=== PATIENT | female | born 1990 | race Caucasian/White ===

== ENCOUNTER 2024-05-31 18:09 | Emergency (ER) | payer OTHER, SELFPAY ==
[2024-05-31 18:16] VITALS: BP 117/75; PULSE 70; RESP 16; TEMP 36.6; O2SAT 100; BMI 32.0
--- NOTE | 2024-05-31 18:16 | ED_ITS ---
HPI - General Adult General Chief complaint: General Medical Stated complaint: Urgent [facility] sent to have Blood tranfusion Time Seen by Provider: 05/31/24 19:30 Source: patient and other (Significant other) Mode of arrival: ambulatory Limitations: no limitations History of Present Illness ED Provider: Dr. Jason Berry HPI narrative: 33-year-old female with a history of anemia who presents emergency department for evaluation abdominal pain, a positive H pylori blood test and anemia. Patient states she was seen in urgent care and was found to have anemia with an H&H of 8.3 and 29. She also states that she had a positive H pylori test. She states she was told to go to the emergency department to get a blood transfusion indicate treated for H pylori. She states that she was exposed to someone that has H pylori. The patient states that she was having abdominal pain and she points to her epigastric area when asked to localize her pain. She describes the pain is a heartburn like pain which is worse with eating. She has not noticed any dark tarry stools or bloody stools. The patient states that she does have very heavy menstrual periods and has to use pads and tampons. She states that she was may have had iron deficiency anemia in the past but never took iron supplements. Related Data Previous Rx's ?Medication ?Instructions ?Recorded amoxicillin 500 mg capsule 1,000 mg (2 x 500 mg) PO Q12H 14 05/31/24 days #56 caps clarithromycin 500 mg tablet 500 mg PO Q12H 14 days #28 tabs 05/31/24 ferrous sulfate 325 mg (65 mg 325 mg PO BID 90 days #180 tabs 05/31/24 iron) tablet omeprazole 20 mg capsule,delayed 40 mg (2 x 20 mg) PO DAILY H 05/31/24 release pylori treatment 14 days #28 caps ondansetron HCl 4 mg tablet 4 mg PO Q8H PRN nausea and 05/31/24 vomiting #20 tabs Allergies Allergy/AdvReac Type Severity Reaction Status Date / Time No Known Allergies Allergy Verified 05/31/24 18:19 Review of Systems 2 Review of Systems: Yes all other systems are reviewed and are negative [facility] Past Medical History [facility] Narrative: Social history: She denies tobacco use. She denies alcohol use. She smokes marijuana. Social History Social History Advance Directives: No Advance Directives Information Provided: No Physical Exam ED Vital Signs: Vital Signs - 24 hr 05/31/24 18:16 05/31/24 20:32 Temperature 98 F 98 F Pulse Rate 70 70 Respiratory Rate 16 16 Blood Pressure 117/75 117/75 Pulse Oximetry 100 100 Oxygen Delivery Method Room Air Room Air BMI result Body Mass Index 32.0 Vital signs were normal Exam: General: Awake, alert in no distress Head: Normocephalic, atraumatic EENT: PERRL, Lids normal, sclera normal, conjunctiva normal, nose normal , ears normal, throat without erythema or exudates Neck: Supple, no adenopathy Lung: breath sounds symmetric, no wheezing, rales or rhonchi Chest: symmetric movement, nontender Heart: regular rate and rhythm, normal S1, S2 no murmurs or rubs Abdomen: soft, moderate epigastric tenderness, nondistended, normal bowel sounds Neuro: Awake, alert, oriented, normal speech Course Course Course Narrative: This is a Rapid Medical Examination (RME) performed by Jordan Woodard PA-C in triage. Full HPI, ROS, assessment and treatment plan per primary provider in the Main ED. 33 yo female with recently diagnosed H. Pylori at Urgent Care presents to the ER for blood transfusion after she was also found to be anemic on lab work up there. Results came back today. Reported H/H 8.3. She reports new ALICEA and chronic fatigue. She reports very heavy menstrual cycles. LMP 3 weeks ago. Plan: lab workup, T&S Medical Decision Making Medical Decision Making MDM Narrative: 33-year-old female with a history of anemia who presents emergency department for evaluation epigastric, heartburn like pain, positive H pylori blood test and anemia. The patient's pain was located in the epigastric area and she describes it as heartburn. Physical exam did reveal epigastric tenderness otherwise was unremarkable. Patient was not noted any dark tarry stools or blood per rectum but does have very heavy menstrual periods. Differential diagnosis: ?Includes but is not limited to H pylori infection, peptic ulcer disease, gastritis, stomach ulcer, GERD, iron deficient anemia secondary to GI bleed verses heavy menstrual periods, electrolyte abnormalities Following evaluation was ordered: CBC, BMP, liver panel, magnesium, iron profile, urinalysis, type and screen Course: My interpretation patient's laboratory evaluation is as follows: Microcytic anemia with an H&H of 8.3 and 27.5 with an MCV of 66.9. BNP was normal. LFTs were normal. Iron was low at 14 with a low saturation of 4 and a normal iron binding of 344. Urinalysis was negative. Patient's presentation is consistent with an iron deficient anemia which I suspect is more related to her menses then a GI bleed. Patient does have heartburn like symptoms and may have peptic ulcer disease. She did have a positive antibody test for H pylori. Given her symptoms, I will treat her for possible H pylori peptic ulcer disease with triple therapy: Clarithromycin 500 mg q.12 hours times 14 days, amoxicillin 1000 mg q.12 hours times 14 days and Prilosec (omeprazole) 40 mg once a day for 14 days. Patient was also given a prescription for ferrous sulfate 325 mg tablets, 1 pill q.12 hours for 90 days. I did tell the patient that if her symptoms do not get better after completing the triple therapy for H pylori and she will need to see a freight car repairer for further workup of her abdominal pain in her iron deficiency anemia. Admission/Observation Consideration of admission/observation: Escalation of care including admission/observation considered Lab Data MDM Lab Attestation statement: I reviewed the patient's lab results. 05/31/24 18:27 05/31/24 18:27 Labs: Lab Results 05/31/24 05/31/24 Range/Units 18:27 18:36 WBC 6.1 (4.8-10.8) X10*3/uL RBC 4.11 L (4.20-5.50) X10*6/uL Hgb 8.3 L (12.0-16.0) g/dl Hct 27.5 L (37.0-47.0) % MCV 66.9 L (80.0-98.0) fL MCH 20.2 L (27.0-33.0) pg MCHC 30.2 L (31.0-35.0) g/dl RDW 15.6 (11.0-16.0) % Plt Count 271 (160-400) X10*3/uL MPV 9.9 (9.4-12.3) fL Immature Gran % (Auto) 0.2 (0.0-0.4) % Neut % (Auto) 63.7 (45-73) % Lymph % (Auto) 25.7 (20-40) % [place] % (Auto) 8.2 (2-11) % Eos % (Auto) 1.5 (0-4) % Baso % (Auto) 0.7 (0-2) % Lymph # (Auto) 1.6 (1.2-4.9) X10*3/uL [place] # (Auto) 0.5 (0.1-1.2) X10*3/uL Eos # (Auto) 0.1 (0.0-0.4) X10*3/uL Baso # (Auto) 0.0 (0.0-0.2) X10*3/uL Abs Immat Gran (auto) 0.01 (0.00-0.03) X10*3/uL Absolute Neuts (auto) 3.9 (2.0-8.3) x10*3/uL Absolute Nucleated RBC 0.000 (0.0-0.012) X10*3/uL Nucleated RBC % (auto) 0.0 (0.0-0.2) /100WBC Sodium 140 (135-145) mmol/L Potassium 3.6 (3.3-5.1) mmol/L Chloride 108 (96-108) mmol/L Carbon Dioxide 24 (22-29) mmol/L Anion Gap 12 (12-20) BUN 16 (9-16) mg/dL Creatinine 0.73 (0.5-1.4) mg/dL Estim Creat Clear Calc 99.6 Estimated GFR > 60 Random Glucose 93 (60-115) mg/dL Calcium 8.8 (8.4-10.2) mg/dL Magnesium 2.1 (1.6-2.6) mg/dL Iron 14 L (30-160) mcg/dL TIBC 358 (228-428) mcg/dL % Saturation 4 L (15-50) % Unsat Iron Binding 344 ug/dL Total Bilirubin 0.1 (0.0-1.0) mg/dL Direct Bilirubin < 0.2 (0.0-0.5) mg/dL AST 25 (5-31) U/L ALT 11 (0-31) U/L Alkaline Phosphatase 48 (39-117) U/L Total Protein 6.9 (6.5-8.0) g/dL Albumin 3.8 (3.5-5.0) g/dL Urine Color Yellow Urine Appearance Clear Urine pH 6.0 (5.0-9.0) Ur Specific [place] 1.015 (1.005-1.025) Urine Protein Negative (Neg-Trace) mg/dL Urine Glucose (UA) Negative (Negative) mg/dL Urine Ketones Negative (Negative) mg/dL Urine Blood Negative (Negative) Urine Nitrite Negative (Negative) Ur Leukocyte Esterase Negative (Negative) Blood Type O Positive Antibody Screen NEGATIVE Independent Historian Clinical information obtained from an independent historian. History obtained from or confirmed by: Other (Significant other) When I initially went into the room to talk to the patient, both the patient and the patient's significant other quickly became upset and angry when I was asking questions about the patient's presentation. They were insistent that they were here in the emergency department get treated for H pylori and to get blood transfusions for her anemia. I tried to explain that a positive H pylori test may not be related to her symptoms and that it was important to take a history , performed physical, review her laboratory data in order to make a diagnosis and determine clinically if her symptoms and exam would be consistent with H pylori peptic ulcer disease and required treatment. The significant other became very upset and kept interrupting me. At one point the patient's significant other became very upset and told me that she knew that we would not listen to her and her girlfriend and the significant other left the room. After the significant other left the room , I was able to talk to the and I was able to talk to the patient and I was able to get a history, performed an exam and have a discussion about treatment options with the patient. Prescription Management I considered prescription management with: Antibiotic and Other (H2 christian) Discharge Plan Discharge Clinical Impression: PUD (peptic ulcer disease), Helicobacter pylori ab+, Microcytic anemia Patient Disposition: Home, Self-Care Instructions: Peptic Ulcer (ED), Iron Deficiency Anemia (ED) Additional Instructions: Your iron deficient anemia is more likely to be caused by your menstrual periods. Every time you have a menstrual period in lose blood, you lose iron and this is a very common cause for anemia in women. Your hematocrit today was 27.5%. The normal range in women is 37-47%. We do not transfuse people unless there hematocrit is below 21%. Take ferrous sulfate 325 mg pills, 1 pill twice a day for 3 months. This should increase your hematocrit. You need to follow-up with your primary care provider to get a repeat hemoglobin and hematocrit in 1-2 months to make sure that this medication is working to help reverse your anemia. Your stomach/heartburn symptoms may be consistent with an H pylori infection causing peptic ulcer disease. I am going to treat you for H pylori, however if your heartburn symptoms better after completing the 3 drug therapy, then you will need to follow-up with a freight car repairer for an endoscopy to look for other causes of your heartburn symptoms. Take the following 3 medications as prescribed: Prilosec (omeprazole) 20 mg pills, 2 pills once a day for 14 days Clarithromycin 500 mg pills, 1 pill every 12 hours for 14 days. Amoxicillin 500 mg pills, 2 pills every 12 hours for 14 days Your hematocrit today was 27.5%. The normal range in women is 37-47%. We do not transfuse people unless there hematocrit is below 21%. The ferrous sulfate and Prilosec are also yyfm-yye-[id number] medications and your insurance may not cover these medications. Prescriptions: New amoxicillin 500 mg capsule 1,000 mg PO Q12H 14 Days Qty: 56 0RF omeprazole 20 mg capsule,delayed release(DR/EC) 40 mg PO DAILY 14 Days Qty: 28 0RF clarithromycin 500 mg tablet 500 mg PO Q12H 14 Days Qty: 28 0RF ondansetron HCl 4 mg tablet 4 mg PO Q8H PRN (Reason: nausea and vomiting) Qty: 20 0RF ferrous sulfate 325 mg (65 mg iron) tablet 325 mg PO BID 90 Days Qty: 180 0RF Interventions: ED Discharge Assessment Last Done: 05/31/24 20:32 Discharge Date/Time: 05/31/24 20:33 Print Language: Cymro
[2024-05-31 18:43] LABS: MANUAL DIFF FLAG NO
[2024-05-31 18:54] LABS: Basophils Percent Auto 0.7 % (0-2); Eosinophils Absolute Auto 0.1 X10*3/uL (0.0-0.4); Eosinophils Percent Auto 1.5 % (0-4); Hematocrit 27.5 % (37.0-47.0); Hemoglobin 8.3 g/dl (12.0-16.0); Imm Gran Abs Auto 0.01 X10*3/uL (0.00-0.03); Imm Gran Pct Auto 0.2 % (0.0-0.4); Lymphocytes Absolute Auto 1.6 X10*3/uL (1.2-4.9); Lymphocytes Percent Auto 25.7 % (20-40); Mean Corpuscular HGB Conc 30.2 g/dl (31.0-35.0); Mean Corpuscular Hemoglobin 20.2 pg (27.0-33.0); Mean Corpuscular Volume 66.9 fL (80.0-98.0); Mean Platelet Volume 9.9 fL (9.4-12.3); Monocytes Absolute Auto 0.5 X10*3/uL (0.1-1.2); Monocytes Percent Auto 8.2 % (2-11); Neutrophils Absolute Auto 3.9 x10*3/uL (2.0-8.3); Neutrophils Percent Auto 63.7 % (45-73); Platelet Count 271 X10*3/uL (160-400); Red Blood Count 4.11 X10*6/uL (4.20-5.50); Red Cell Distribution Width 15.6 % (11.0-16.0); White Blood Count 6.1 X10*3/uL (4.8-10.8)
[2024-05-31 18:54] LABS: Appearance Urine Clear; Color Urine Yellow; Glucose Urine UA Negative (Negative); Leukocyte Esterase Urine Negative (Negative); Nitrite Urine Negative (Negative); Specific Gravity - Urine 1.015 (1.005-1.025); Urine Blood Negative (Negative); Urine Ketones Negative (Negative); Urine Protein Negative (Neg-Trace)
[2024-05-31 19:05] LABS: Alanine Aminotransferase 11 U/L (0-31); Albumin Level 3.8 g/dL (3.5-5.0); Alkaline Phosphatase 48 U/L (39-117); Anion Gap 12 (12-20); Aspartate Amino Transferase 25 U/L (5-31); Bilirubin Direct < 0.2 mg/dL (0.0-0.5); Bilirubin Total 0.1 mg/dL (0.0-1.0); Blood Urea Nitrogen 16 mg/dL (9-16); Calcium 8.8 mg/dL (8.4-10.2); Carbon Dioxide 24 mmol/L (22-29); Chloride 108 mmol/L (96-108); Creatinine Clr Calc Pharmacy 99.6; Estimated Glomerular Filt Rate > 60; Glucose Random 93 mg/dL (60-115); Iron 14 mcg/dL (30-160); Magnesium 2.1 mg/dL (1.6-2.6); Percent Iron Saturation 4 % (15-50); Potassium 3.6 mmol/L (3.3-5.1); Sodium 140 mmol/L (135-145); Total Iron Binding Capacity 358 mcg/dL (228-428); Total Protein 6.9 g/dL (6.5-8.0); Unsaturated Iron Binding 344 ug/dL
[2024-05-31 20:32] VITALS: BP 117/75; PULSE 70; RESP 16; TEMP 36.6; O2SAT 100
== END 2024-05-31 20:33 | disposition home or self-care (01) ==
PROVIDERS: Physician Assistant; Emergency Provider Emergency Medicine Emergency Medical Services
DX: K27.9 Peptic ulcer, site unspecified, unspecified as acute or chronic, without hemorrhage or perforation (principal); A04.8 Other specified bacterial intestinal infections; D64.9 Anemia, unspecified; Z79.899 Other long term (current) drug therapy
CPT/HCPCS: 36415; 80048; 80076; 81003; 83540; 83735; 85025; 86850; 86900; 86901; 99283

== ENCOUNTER 2024-10-22 07:53 | Emergency (ER) | payer OTHER, SELFPAY ==
--- NOTE | ~2024-10-22 | XR_ITS ---
EXAMINATION: XR CHEST CLINICAL INFORMATION: cough COMPARISON: None available. TECHNIQUE: 2 views of the chest were obtained. FINDINGS: No significant abnormality is noted involving the heart, lungs, mediastinum, bony thorax or soft tissues. XR/XR chest 2V IMPRESSION: Unremarkable chest examination. Electronically signed by: Tim Mcgarry MD 10/22/2024 08:30 AM [facility]
[2024-10-22 07:55] VITALS: BP 109/60; PULSE 91; RESP 20; TEMP 38.3; O2SAT 100; BMI 28.3
[2024-10-22] MEDS: Ondansetron ODT 4 MG TAB.RAPDIS TRANSLINGU (08:01)
[2024-10-22] MEDS: Acetaminophen 325 MG TABLET 650 MG PO (08:03)
[2024-10-22 09:09] LABS: Influenza A PCR POSITIVE (Negative); Influenza B PCR NEGATIVE (Negative); Resp Syncy Virus RNA Qual PCR NEGATIVE (Negative); SARS COV2 PCR INHOUSE NEGATIVE (Negative)
--- NOTE | 2024-10-22 09:13 | ED.GENADULT ---
HPI - General Adult General Chief complaint: Upper Respiratory Symptoms Stated complaint: Flu symptoms Time Seen by Provider: 10/22/24 09:02 Source: patient Mode of arrival: ambulatory Limitations: no limitations History of Present Illness ED Provider: Naomi Hackett PA-C HPI narrative: Patient is a 34 year old assigned female at with no reported medical history presenting to the emergency department today with a cough, body aches, nausea, and vomiting. Patient states that over the last 2 days she has had nausea, vomiting, cough, body aches, and chills. Patient denies any dizziness, lightheadedness, abdominal pain, blurry vision, double vision, loss of vision, chest pain, difficulty breathing, shortness of breath, back pain, night sweats, pain with urination, increased urinary frequency, increased urinary urgency, blood in her urine or stool, syncope or a near syncopal episode, recent trauma or falls, bowel incontinence, bladder incontinence, or any other complaints at this time. Onset (ago): day(s) (2) Relieving factors: none Exacerbating factors: none Associated symptoms: cough, fever/chills and nausea/vomiting Treatments prior to arrival: other (Nyquil at 0400) Related Data Previous Rx's ?Medication ?Instructions ?Recorded amoxicillin 500 mg capsule 1,000 mg (2 x 500 mg) PO Q12H 14 05/31/24 days #56 caps clarithromycin 500 mg tablet 500 mg PO Q12H 14 days #28 tabs 05/31/24 ferrous sulfate 325 mg (65 mg 325 mg PO BID 90 days #180 tabs 05/31/24 iron) tablet omeprazole 20 mg capsule,delayed 40 mg (2 x 20 mg) PO DAILY H 05/31/24 release pylori treatment 14 days #28 caps ondansetron HCl 4 mg tablet 4 mg PO Q8H PRN nausea and 05/31/24 vomiting #20 tabs Allergies Allergy/AdvReac Type Severity Reaction Status Date / Time No Known Allergies Allergy Verified 10/22/24 07:56 Review of Systems Constitutional: Constitutional: Reports no additional constitutional complaints, Reports chills, Reports fever(s) and Denies night sweats Eyes: Eyes: Reports no additional eye complaints, Denies blurry vision, Denies change in vision, Denies diplopia, Denies eye discharge, Denies loss of vision and Denies eye pain ENT: Denies dizziness Cardiovascular: Cardiovascular: Reports no additional cardiovascular complaints, Denies chest pain, Denies lightheadedness, Denies Loss of Consciousness and Denies dyspnea Respiratory: Respiratory: Reports no additional respiratory complaints, Reports cough and Denies dyspnea Gastrointestinal: Gastrointestinal: Reports no additional gastrointestinal complaints, Denies abdominal pain, Denies melena, Denies hematochezia, Denies change in bowel habits, Denies change in stool character, Reports nausea and Reports vomiting Genitourinary: Genitourinary: Denies hematuria, Denies urinary frequency, Denies dysuria, Denies urinary incontinence, Denies urinary hesitancy and Denies urinary urgency Musculoskeletal: Musculoskeletal: Reports no additional musculoskeletal complaints, Denies numbness and Denies tingling Neurologic: Denies dizziness, Denies loss of vision, Denies numbness and Denies tingling Psychiatric: Psychiatric: Reports no additional psychiatric complaints Endocrine: Endocrine: Reports no additional endocrine complaints Hematologic/Lymphatic: Hematologic/Lymphatic: Reports no additional hematologic/lymphatic complaints Allergic/Immunologic: Allergic/Immunologic: Reports no additional allergic/immunologic complaints PMFSH Past Medical History Attestation statement: The following information was validated with the patient. Source: old records reviewed and nursing notes reviewed Physical Exam ED Vital Signs: Vital Signs - 24 hr 10/22/24 07:55 10/22/24 10:49 Temperature 101 F H 99.7 F Pulse Rate 91 84 Respiratory Rate 20 18 Blood Pressure 109/60 110/58 L Pulse Oximetry 100 99 Oxygen Delivery Method Room Air Room Air BMI result Body Mass Index 28.3 Const General: cooperative, no acute distress, alert and awake Nutritional Appearance: well nourished Orientation/consciousness: patient oriented x3 Limitations: no limitations HENAK Head: Yes normal to inspection and Yes atraumatic Ears: hearing grossly normal bilaterally and external ears normal General nose exam: Normal external nose present, no nasal discharge noted and no epistaxis Face and sinus: Yes normal facial exam, No abrasion and No laceration Mouth: Normal oral and palatal mucosa present, no drooling and no muffled voice Eyes General: appearance normal, both eyes and all related structures Periorbital: periorbital findings normal Eyelids: Yes eyelids normal Conjunctivae: conjunctivae normal Pupils: Equal, round and reactive pupils present EOM: EOMs intact bilaterally Neck Neck: Yes normal visual inspection, Yes full ROM and Yes no lymphadenopathy Chest Chest palpation & inspection: normal inspection of the chest Resp Effort & Inspection: normal respiratory effort and able to speak in complete sentences GI Inspection: Yes normal to inspection Neuro General: patient oriented x3 and moves all extremities Cranial nerves: Yes Equal, round and reactive pupils present Cognition (Neuro): normal cognition Extrem General: Yes normal to inspection, Yes full ROM and Yes capillary refill normal Psych Appearance: grossly normal Mental Status: mental status grossly normal Affect: normal affect Attitude: cooperative Thought process: Normal thought process present Thought content: Normal thought content present Insight: Good insight present (Psych) Medications Administered Discontinued Medications Generic Name Dose Route Start Last Admin Trade Name José Manuelq PRN Reason Stop Dose Admin Acetaminophen 650 mg 10/22/24 07:57 10/22/24 08:03 Acetaminophen 325 Mg Tablet PO 10/22/24 07:58 650 mg ONCE ONE Administration Sodium Chloride 1,000 mls @ 999 mls/hr 10/22/24 09:15 10/22/24 10:39 Ns IV 10/22/24 10:15 Infused .Q1H1M GRECIA Infusion Ketorolac Tromethamine 15 mg 10/22/24 10:25 10/22/24 10:39 Ketorolac Tromethamine 15 Mg/Ml Vial IVPUSH 10/22/24 10:26 15 mg ONCE ONE Administration Ondansetron HCl 4 mg 10/22/24 07:59 10/22/24 08:01 Ondansetron Odt 4 Mg Tab.Rapdis TRANSLINGU 10/22/24 08:00 4 mg ONCE ONE Administration Medical Decision Making Medical Decision Making [facility] Narrative: Patient is a 34 year old assigned female at with no reported medical history presenting to the emergency department today with a cough, fever, chills, nausea, and vomiting. Patient's physical exam was unremarkable. Patient's chest x-ray showed no acute process. Patient's influenza test was positive. I explained my physical exam findings as well as all test results to the patient. I answered all questions asked by the patient. I stressed the importance of the patient taking her medication as directed (either prescribed or as the over the counter packaging recommends). I stressed the importance of the patient following up with her primary care provider. I stressed the importance of the patient returning to the emergency department immediately if her symptoms were to worsen or if she were to develop any dizziness, shortness of breath, difficulty breathing, chest pain, blurry vision, loss of vision, nausea, vomiting, abdominal pain, fever, chills, back pain, or any other complaints. Patient verbalized agreement and understanding with this treatment plan and discharge. Differential Diagnosis Differential Diagnoses: The differential diagnosis associated with the presentation includes COVID-19 Influenza RSV PNA Viral illness Admission/Observation Consideration of admission/observation: Escalation of care including admission/observation considered Patient would have been admitted to the hospital had her work up had any findings where hospital admission was appropriate and her clinical presentation warranted hospital admission. Lab Data [facility] Lab Attestation statement: I reviewed the patient's lab results. My interpretation of these results are in the [facility] Rationale portion of this note. Labs: Lab Results 10/22/24 Range/Units 08:03 Influenza Type A (PCR) POSITIVE A (Negative) Influenza Type B (PCR) NEGATIVE (Negative) RSV RNA Qual (PCR) NEGATIVE (Negative) SARS-CoV-2 RNA (RT-PCR) NEGATIVE (Negative) Independent Interpretation I performed an independent interpretation of an: Plain X-Ray Interpretation: My interpretation is in agreement with the radiologist's impression of this imaging study. EXAMINATION: XR CHEST CLINICAL INFORMATION: cough COMPARISON: None available. TECHNIQUE: 2 views of the chest were obtained. FINDINGS: No significant abnormality is noted involving the heart, lungs, mediastinum, bony thorax or soft tissues. XR/XR chest 2V IMPRESSION: Unremarkable chest examination. Electronically signed by: Tim Mcgarry MD 10/22/2024 08:30 AM [facility] [place]ict[place] By: Tim Mcgarry MD Signed By: Electronically signed by Tim Mcgarry MD 10/22/24 0830 Radiology Impression Discussion of test interpretation with radiology: I have reviewed the radiologist's reading. Discharge Plan Discharge Clinical Impression: Influenza Patient Disposition: Home, Self-Care Instructions: Influenza (DC) Additional Instructions: Follow up with your primary care provider. Return to the emergency department immediately if your symptoms worsen or if you develop any dizziness, shortness of breath, difficulty breathing, chest pain, blurry vision, loss of vision, nausea, vomiting, abdominal pain, fever, chills, back pain, or any other complaints. Prescriptions: No Action amoxicillin 500 mg capsule 1,000 mg PO Q12H 14 Days Qty: 56 0RF omeprazole 20 mg capsule,delayed release(DR/EC) 40 mg PO DAILY 14 Days Qty: 28 0RF clarithromycin 500 mg tablet 500 mg PO Q12H 14 Days Qty: 28 0RF ondansetron HCl 4 mg tablet 4 mg PO Q8H PRN (Reason: nausea and vomiting) Qty: 20 0RF ferrous sulfate 325 mg (65 mg iron) tablet 325 mg PO BID 90 Days Qty: 180 0RF Referrals: [facility] [Provider Group] (Call to establish and follow up with a primary care provider. If you already have a primary care provider, please follow up with them.) [facility] [place] [Provider Group] (Call to establish and follow up with a primary care provider. If you already have a primary care provider, please follow up with them.) [facility],[place] [Provider Group] (Call to establish and follow up with a primary care provider. If you already have a primary care provider, please follow up with them.) Stand Alone Forms: Work/School Release Interventions: ED Discharge Assessment Last Done: 10/22/24 10:49 Discharge Date/Time: 10/22/24 10:50 Print Language: Azeri
[2024-10-22] MEDS: 0.9 % Sodium Chloride 1,000 ML 999 ML IV (09:34)
[2024-10-22] MEDS: Ketorolac Tromethamine 15 MG/ML VIAL IVPUSH (10:39)
[2024-10-22 10:49] VITALS: BP 110/58; PULSE 84; RESP 18; TEMP 37.6; O2SAT 99
== END 2024-10-22 10:50 | disposition home or self-care (01) ==
PROVIDERS: Emergency Provider Emergency Medicine Emergency Medical Services
DX: J10.1 Influenza due to other identified influenza virus with other respiratory manifestations (principal); R50.9 Fever, unspecified; R05.9 Cough, unspecified; Z03.818 Encounter for observation for suspected exposure to other biological agents ruled out
CPT/HCPCS: 0241U; 71046; 96361; 96374; 99283; 99284; J1885

== ENCOUNTER → 2024-10-22 08:20 | Outpatient (BNV) | payer OTHER, SELFPAY | PROVIDERS: Visit Provider Radiology Diagnostic Radiology | DX: R05.9 Cough, unspecified (principal) | CPT/HCPCS: 71046 ==

== ENCOUNTER → 2025-01-03 21:32 | Outpatient (BNV) | payer OTHER, SELFPAY | PROVIDERS: Emergency Provider Emergency Medicine; Visit Provider Surgery | DX: D64.9 Anemia, unspecified (principal); K35.80 Unspecified acute appendicitis; N92.0 Excessive and frequent menstruation with regular cycle | CPT/HCPCS: 44970; 99024; 99222 ==

== ENCOUNTER → 2025-01-03 22:40 | Outpatient (BNV) | payer OTHER, SELFPAY | PROVIDERS: Emergency Provider Emergency Medicine; Visit Provider Radiology Vascular & Interventional Radiology | DX: R10.31 Right lower quadrant pain (principal) | CPT/HCPCS: 74177 ==

== ENCOUNTER → 2025-01-04 05:54 | Outpatient (BNV) | payer OTHER, SELFPAY | PROVIDERS: Admitting Provider Surgery; Visit Provider Internal Medicine Cardiovascular Disease | DX: R00.1 Bradycardia, unspecified (principal); R94.31 Abnormal electrocardiogram [ECG] [EKG] | CPT/HCPCS: 93010 ==

== ENCOUNTER 2025-01-04 15:37 | Inpatient (IN) | payer OTHER, SELFPAY ==
--- NOTE | 2025-01-03 19:27 | ED_ITS ---
HPI - Abdominal Pain General Chief Complaint: Abdominal Pain Stated Complaint: lower right abd pain Time Seen by Provider: 01/03/25 22:20 Source: patient and family (Significant other) Mode of arrival: ambulatory Limitations: no limitations History of Present Illness ED Provider: DR. Mccurdy HPI narrative: 34-year-old female with history of iron deficiency anemia presented today with right-sided abdominal pain for the last 3 days accompanied with nausea, 3 days of loose stool, passing gas, patient declined any blood in the stool, having her menses now, + dizziness, no CP, no SOB, Past surgical history significant for C-sections, passing flatus. Related Data Previous Rx's ?Medication ?Instructions ?Recorded amoxicillin 500 mg capsule 1,000 mg (2 x 500 mg) PO Q12H 14 05/31/24 days #56 caps clarithromycin 500 mg tablet 500 mg PO Q12H 14 days #28 tabs 05/31/24 ferrous sulfate 325 mg (65 mg 325 mg PO BID 90 days #180 tabs 05/31/24 iron) tablet omeprazole 20 mg capsule,delayed 40 mg (2 x 20 mg) PO DAILY H 05/31/24 release pylori treatment 14 days #28 caps ondansetron HCl 4 mg tablet 4 mg PO Q8H PRN nausea and 05/31/24 vomiting #20 tabs Allergies Allergy/AdvReac Type Severity Reaction Status Date / Time No Known Allergies Allergy Verified 01/03/25 19:29 Review of Systems Review of Systems All other systems are reviewed and are negative Constitutional: Reports as per HPI and Reports no additional constitutional complaints Eyes: Reports as per HPI and Reports no additional eye complaints Reports system reviewed and no additional complaints, except as documented Cardiovascular: Reports as per HPI and Reports no additional cardiovascular complaints Respiratory: Reports as per HPI and Reports no additional respiratory complaints Gastrointestinal: Reports as per HPI and Reports no additional gastrointestinal complaints Genitourinary: Reports no additional female genitourinary complaints Musculoskeletal: Reports no additional musculoskeletal complaints Skin/Breast: Reports system reviewed and no additional complaints, except as docu Psychiatric: Reports no additional psychiatric complaints Endocrine: Reports no additional endocrine complaints Hematologic/Lymphatic: Reports no additional hematologic/lymphatic complaints Allergic/Immunologic: Reports no additional allergic/immunologic complaints Reports system reviewed and no additional complaints, except as documented and Reports Abnormal speech present [facility] Social History Social History Smoked in Last 30 Days: No Substance Use Type: Marijuana Substance Use Frequency: Daily Advance Directives: No Advance Directives Information Provided: No Do you have a plan to hurt others: No Plan Patient : No Physical Exam ED Vital Signs: Vital Signs - 24 hr 01/03/25 19:28 01/03/25 21:47 01/03/25 22:00 Temperature 98.6 F 97.9 F Pulse Rate 78 54 67 Respiratory Rate 18 18 18 Blood Pressure 107/67 106/58 L 103/64 Pulse Oximetry 100 100 97 Oxygen Delivery Method Room Air Room Air Room Air 01/04/25 01:07 01/04/25 01:41 01/04/25 01:59 Temperature 97.9 F 97.9 F 98.2 F Pulse Rate 63 63 52 Respiratory Rate 16 16 17 Blood Pressure 109/32 L 109/32 L 100/57 L Pulse Oximetry 100 Oxygen Delivery Method Room Air 01/04/25 03:31 01/04/25 04:16 01/04/25 06:27 Temperature 98.1 F Pulse Rate 51 63 46 L Respiratory Rate 13 16 12 Blood Pressure 93/52 L 100/64 98/63 Pulse Oximetry 99 Oxygen Delivery Method Room Air 01/04/25 07:07 Temperature Pulse Rate 50 Respiratory Rate 16 Blood Pressure 106/63 Pulse Oximetry 98 Oxygen Delivery Method Room Air BMI result Body Mass Index 28.5 Vital signs have been reviewed and appear to be correct. Blood pressure elevated. Heart rate normal. Respiratory rate normal. Temperature normal. Oxygen saturation normal. Appearance: Alert. Oriented X3. No acute distress. Head: Normal external exam. Normocephalic. Atraumatic. No Elizabeth signs noted. No raccoon eyes noted Eyes: PERRLA. EOMI. Conjunctiva and sclera normal. Eyelids normal. ENT: TM's Normal. Pharynx normal. Uvula midline. Moist mucous membranes. No trismus noted. No drooling noted. No muffled voice noted. Neck: Normal inspection. Neck supple. FROM. No adenopathy. Thyroid Normal. No meningeal signs. No neck mass noted. CVS: Normal heart rate and rhythm. Heart sound normal. No murmurs noted. Pulses normal throughout. Respiratory: No respiratory distress. Painless inspiration. Breath sounds normal. No wheezes/rales/rhonchi noted. Chest nontender. No accessory muscle usage noted or decreased air movement noted. Abdomen: Soft, RLQ tenderness, no rebound tenderness, no guarding. Bowel sounds normal in all 4 quadrants. No distention noted. No organomegaly noted. No visible injury noted. Back: No CVA tenderness. Full range of motion noted. Skin: Skin warm and dry. Normal skin color. Normal skin turgor. No rashes/lesions/lacerations noted. Extremities: No lower extremity edema. Extremities exhibit normal range of motion. Extremities nontender. Neuro: Oriented X 3. Cranial nerve exam: II-XII are grossly intact No motor deficit. No sensory deficit. Reflexes normal. Course Course Course Narrative: This is an RME: Additional HPI, ROS, PE not included below will be deferred to primary provider. RME assessment and note performed by: Alem Luke PA-C This is a [id number], with a hx of iron deficiency anemia and h pylori, who presents to the ER with a complaint of right sided abdominal pain, right flank pain. Hurts more with coughing. Reporting 3 days ago she had loose stool and is concerned about a hemorrhoid she has now as well. No longer having loose stools. Also has her menses now. Pt with TTP overlying her right flank. Reports urinary frequency and urgency. No dysuria or hematuria. Plan:Labs, UA Reevaluation(s) Reevaluation #1: 34-year-old female came in with abdominal pain CT scan suspecting early appendicitis case discussed with Dr. Lozoya who will see the patient in the emergency department in the a.m.. Patient also found to be anemic consented for 1 unit RBCs blood transfusion. Despite patient knowing the seriousness of appendicitis threatened several times to sign against medical advice, I had several lengthy conversation with the patient was given Benadryl to to help her sleep, now she agreed to stay till morning for further surgical evaluation. Time: 02:10 Reevaluation #2: Seen and evaluated by Dr. Lozoya in the emergency department will be going to the OR for appendectomy. Time: 06:58 Medical Decision Making Differential Diagnosis Differential Diagnoses: The differential diagnosis associated with the presentation includes (Severe anemia, GI bleed, acute appendicitis, pyelonephritis, kidney stones, UTI, ) Admission/Observation Consideration of admission/observation: Escalation of care including admission/observation considered Consult Healthcare Provider Management of the patient was discussed with: Material Requirements Worker (Dr. Lozoya.) Lab Data MDM Lab Attestation statement: I reviewed the patient's lab results. 01/03/25 20:25 01/03/25 20:25 Labs: Lab Results 01/03/25 01/03/25 Range/Units 20:25 23:22 WBC 6.1 (4.8-10.8) X10*3/uL RBC 3.97 L (4.20-5.50) X10*6/uL Hgb 6.8 L* (12.0-16.0) g/dl Hct 24.2 L (37.0-47.0) % MCV 61.0 L (80.0-98.0) fL MCH 17.1 L (27.0-33.0) pg MCHC 28.1 L (31.0-35.0) g/dl RDW 19.3 H (11.0-16.0) % Plt Count 322 (160-400) X10*3/uL MPV 9.6 (9.4-12.3) fL Immature Gran % (Auto) 0.2 (0.0-0.4) % Neut % (Auto) 56.6 (45-73) % Lymph % (Auto) 33.3 (20-40) % Drew % (Auto) 7.6 (2-11) % Eos % (Auto) 1.6 (0-4) % Baso % (Auto) 0.7 (0-2) % Lymph # (Auto) 2.0 (1.2-4.9) X10*3/uL Drew # (Auto) 0.5 (0.1-1.2) X10*3/uL Eos # (Auto) 0.1 (0.0-0.4) X10*3/uL Baso # (Auto) 0.0 (0.0-0.2) X10*3/uL Abs Immat Gran (auto) 0.01 (0.00-0.03) X10*3/uL Absolute Neuts (auto) 3.4 (2.0-8.3) x10*3/uL Absolute Nucleated RBC 0.000 (0.0-0.012) X10*3/uL Nucleated RBC % (auto) 0.0 (0.0-0.2) /100WBC Sodium 140 (135-145) mmol/L Potassium 3.9 (3.3-5.1) mmol/L Chloride 109 H (96-108) mmol/L Carbon Dioxide 26 (22-29) mmol/L Anion Gap 9 L (12-20) BUN 22 H (9-16) mg/dL Creatinine 0.74 (0.5-1.4) mg/dL Estim Creat Clear Calc 91.8 Estimated GFR > 60 Random Glucose 84 (60-115) mg/dL Calcium 8.8 (8.4-10.2) mg/dL Magnesium 1.9 (1.6-2.6) mg/dL Total Bilirubin 0.3 (0.0-1.0) mg/dL Direct Bilirubin 0.1 (0.0-0.5) mg/dL AST 27 (5-31) U/L ALT 10 (0-31) U/L Alkaline Phosphatase 49 (39-117) U/L Total Protein 7.5 (6.5-8.0) g/dL Albumin 4.0 (3.5-5.0) g/dL Beta HCG, Quant < 2 mIU/mL Urine Color Yellow Urine Appearance Clear Urine pH 5.5 (5.0-9.0) Ur Specific [place] >= 1.030 H (1.005-1.025) Urine Protein Trace (Neg-Trace) mg/dL Urine Glucose (UA) Negative (Negative) mg/dL Urine Ketones Trace (Negative) mg/dL Urine Blood Negative (Negative) Urine Nitrite Negative (Negative) Ur Leukocyte Esterase Negative (Negative) Blood Type O Positive Antibody Screen NEGATIVE Crossmatch See Detail Independent Interpretation I performed an independent interpretation of an: CT Scan (Abdomen pelvis:The appendix is borderline prominent at 7 mm and does exhibit minimal periappendiceal stranding. This is in a retrocecal position. The base and proximal appendix are thin walled and gas-filled. Findings are somewhat nonspecific. Close clinical follow-up could be considered. Otherw) Radiology Impression Discussion of test interpretation with radiology: I have reviewed the radiologist's reading. Medications Administered Discontinued Medications Generic Name Dose Route Start Last Admin Trade Name Freq PRN Reason Stop Dose Admin Diphenhydramine HCl 50 mg 01/04/25 01:08 01/04/25 01:14 Diphenhydramine Hcl 50 Mg/Ml Vial IVPUSH 01/04/25 01:09 50 mg ONCE ONE Administration Iohexol 85 ml 01/03/25 23:05 01/03/25 23:06 Iohexol 350 Mg/Ml 100 Ml Infus..Btl IV 01/03/25 23:06 85 ml ONCE ONE Administration Discharge Plan Discharge Clinical Impression: Abdominal pain, Acute appendicitis, Severe anemia Patient Disposition: Still a Patient Prescriptions: No Action amoxicillin 500 mg capsule 1,000 mg PO Q12H 14 Days Qty: 56 0RF omeprazole 20 mg capsule,delayed release(DR/EC) 40 mg PO DAILY 14 Days Qty: 28 0RF clarithromycin 500 mg tablet 500 mg PO Q12H 14 Days Qty: 28 0RF ondansetron HCl 4 mg tablet 4 mg PO Q8H PRN (Reason: nausea and vomiting) Qty: 20 0RF ferrous sulfate 325 mg (65 mg iron) tablet 325 mg PO BID 90 Days Qty: 180 0RF Print Language: Pashto
[2025-01-03 19:28] VITALS: BP 107/67; PULSE 78; RESP 18; TEMP 37; O2SAT 100; BMI 28.5
[2025-01-03 20:31] LABS: MANUAL DIFF FLAG NO
[2025-01-03 20:39] LABS: Basophils Percent Auto 0.7 % (0-2); Eosinophils Absolute Auto 0.1 X10*3/uL (0.0-0.4); Eosinophils Percent Auto 1.6 % (0-4); Hematocrit 24.2 % (37.0-47.0); Imm Gran Abs Auto 0.01 X10*3/uL (0.00-0.03); Imm Gran Pct Auto 0.2 % (0.0-0.4); Lymphocytes Percent Auto 33.3 % (20-40); Mean Corpuscular HGB Conc 28.1 g/dl (31.0-35.0); Mean Corpuscular Hemoglobin 17.1 pg (27.0-33.0); Mean Platelet Volume 9.6 fL (9.4-12.3); Monocytes Absolute Auto 0.5 X10*3/uL (0.1-1.2); Monocytes Percent Auto 7.6 % (2-11); Neutrophils Absolute Auto 3.4 x10*3/uL (2.0-8.3); Neutrophils Percent Auto 56.6 % (45-73); Platelet Count 322 X10*3/uL (160-400); Red Blood Count 3.97 X10*6/uL (4.20-5.50); Red Cell Distribution Width 19.3 % (11.0-16.0); White Blood Count 6.1 X10*3/uL (4.8-10.8)
[2025-01-03 20:44] LABS: Hemoglobin 6.8 g/dl (12.0-16.0)
[2025-01-03 20:57] LABS: Alanine Aminotransferase 10 U/L (0-31); Alkaline Phosphatase 49 U/L (39-117); Anion Gap 9 (12-20); Aspartate Amino Transferase 27 U/L (5-31); Bilirubin Direct 0.1 mg/dL (0.0-0.5); Bilirubin Total 0.3 mg/dL (0.0-1.0); Blood Urea Nitrogen 22 mg/dL (9-16); Calcium 8.8 mg/dL (8.4-10.2); Carbon Dioxide 26 mmol/L (22-29); Chloride 109 mmol/L (96-108); Creatinine Clr Calc Pharmacy 91.8; Estimated Glomerular Filt Rate > 60; Glucose Random 84 mg/dL (60-115); HCG Quantitative < 2 mIU/mL; Magnesium 1.9 mg/dL (1.6-2.6); Potassium 3.9 mmol/L (3.3-5.1); Sodium 140 mmol/L (135-145); Total Protein 7.5 g/dL (6.5-8.0)
[2025-01-03 20:58] LABS: Appearance Urine Clear; Color Urine Yellow; Glucose Urine UA Negative (Negative); Leukocyte Esterase Urine Negative (Negative); Nitrite Urine Negative (Negative); PH 5.5 (5.0-9.0); Specific Gravity - Urine >= 1.030 (1.005-1.025); Urine Blood Negative (Negative); Urine Ketones Trace mg/dL (Negative); Urine Protein Trace mg/dL (Neg-Trace)
[2025-01-03 21:47] VITALS: BP 106/58; PULSE 54; RESP 18; TEMP 36.6; O2SAT 100
[2025-01-03 22:00] VITALS: BP 103/64; PULSE 67; RESP 18; O2SAT 97
--- NOTE | 2025-01-03 22:59 | PC.NURSE ---
Report given to MAJOR Ruggiero.
[2025-01-03] MEDS: iohexoL 350 MG/ML 100 ML INFUS..BTL 85 ML IV (23:06)
[2025-01-04] VITALS (20 sets, daily range): BP systolic 93–134; BP diastolic 32–81; PULSE 43–68; RESP 12–18; TEMP 36.2–36.8; O2SAT 94–100
--- NOTE | ~2025-01-04 | US_ITS ---
CLINICAL HISTORY: aub US pelvis transvaginal Comparison: None Findings: Transvaginal scanning performed. The uterus is 8.8 cm length. Normal myometrium. Endometrium 2 mm thickness. Right ovary 2.2 x 1.3 x 4.8 cm. Left ovary 2.6 x 1.4 x 1.6 cm. Normal color Doppler of both ovaries. No free fluid. IMPRESSION: No acute findings. No evidence of torsion. No free fluid. This document has been electronically signed by: Papo Browning MD on 01/05/2025 13:00:26
--- NOTE | ~2025-01-04 | CT_ITS ---
CLINICAL HISTORY: RLQ pain, R O appendicitis CT abdomen and pelvis with contrast Comparison: None Findings: The lung bases are clear. The appendix is in a retrocecal position, axial 50 and measures 7 mm in diameter. There is mild stranding about the appendix. No bowel obstruction or free air. No abscess. Mild diffuse engorgement of the vasa recta and scattered gas and fluid throughout the bowel. The liver, spleen, gallbladder, adrenal glands, pancreas, kidneys, ureters and bladder are within normal limits. Uterus and adnexa are unremarkable. No acute osseous abnormality. Impression: The appendix is borderline prominent at 7 mm and does exhibit minimal periappendiceal stranding. This is in a retrocecal position. The base and proximal appendix are thin walled and gas-filled. Findings are somewhat nonspecific. Close clinical follow-up could be considered. Otherwise findings suggest mild enteritis. This document has been electronically signed by: Papo Browning MD on 01/03/2025 23:35:05
--- NOTE | 2025-01-04 00:40 | PC.NURSE ---
Pt is agitated at the bedside, yelling profanity with the visitor. Pt states I'm irritated and want to leave. Pt informed of RBC's ordered and blood transfusion process. Pt states not wanting to be here and desires to leave. MD made aware and at bedside.
--- NOTE | 2025-01-04 01:09 | PC.NURSE ---
Pt calm and cooperative at this time. Agrees to stay and continue with treatment plan if able to go to sleep. MD made aware. Orders in DEC. VSS. RBC to be retrieved and administered.
[2025-01-04] MEDS: diphenhydrAMINE HCL 50 MG/ML VIAL IVPUSH (01:14)
--- NOTE | 2025-01-04 01:58 | PC.NURSE ---
One unit of RBCs started. No sign of reaction or complication noted. VSS. Pt tolerating well. Monitoring is ongoing.
--- NOTE | 2025-01-04 05:54 | ECG_ITS ---
Test Reason : SALVATORE Blood Pressure : */* mmHG Vent. Rate : 44 BPM Atrial Rate : 44 BPM P-R Int : 134 ms QRS Dur : 88 ms QT Int : 438 ms P-R-T Axes : 37 41 18 degrees QTcB Int : 374 ms Marked sinus bradycardia Possible Anterior infarct , age undetermined Abnormal ECG No previous ECGs available Referred By: Kathi Mccurdy Electronically Signed By: Swapnil Chong
--- NOTE | 2025-01-04 07:28 | PC.NURSE ---
Assumed care of pt at 0700. Pt resting in bed quietly, a/ox3, respirations even and unlabored, no increased wob/sob noted, sinus paolo on monitor, HR 50s-60s. Pt denies pain/n/v at this time. Vitals taken and updated. Dr Lozoya at bedside for general surgery consult. Pt updated on plan for surgery, states NPO since last night. 20g IV right ac- patent, asymptomatic. Call dotson within reach, all needs met at this time.
--- NOTE | 2025-01-04 08:54 | P.HPGS_ITS ---
History of Present Illness History of Present Illness Date of Service: 01/04/25 Chief complaint: lower right abd pain Narrative: Amalia Chan is a 34 year old female presents with a 2 day history of progressively worsening right lower quadrant pain. She has never had this before. Because of progression of symptoms, she presents to emergency department for further evaluation. Workup including CT scan demonstrates findings consistent with appendicitis. No prior abdominal surgeries Patient has a history of iron-deficiency anemia but has not been worked up for this. In fact she required a unit packed red blood cells in the ER. Patient also states she has an eating disorder. She does not think she has very heavy menses to account for her anemia. Patient admits that she has been very noncompliant regarding her own personal health and follow up/workup for her medical issues. Chart was reviewed and patient evaluate [facility] Social History Social History Smoked in Last 30 Days: No Substance Use Type: Marijuana Substance Use Frequency: Daily Advance Directives: No Advance Directives Information Provided: No Do you have a plan to hurt others: No Plan Patient : No Meds Allergies Allergy/AdvReac Type Severity Reaction Status Date / Time No Known Allergies Allergy Verified 01/03/25 19:29 Physical Exam Vital Signs: Vital Signs: Last Vital Signs Temp 98.1 F 01/04/25 04:16 Pulse 50 01/04/25 07:07 Resp 16 01/04/25 07:07 BP 106/63 01/04/25 07:07 Pulse Ox 98 01/04/25 07:07 O2 Del Method Room Air 01/04/25 07:07 BMI result Body Mass Index 28.5 Chest: Other: Chest breath sounds bilaterally, HS 1 in 2 GI: Other: Abdomen marked right lower quadrant localized tenderness. Results Results Labs: Short CBC 01/03/25 Range/Units 20:25 WBC 6.1 (4.8-10.8) X10*3/uL Hgb 6.8 L* (12.0-16.0) g/dl Hct 24.2 L (37.0-47.0) % Plt Count 322 (160-400) X10*3/uL BMP 01/03/25 20:25 Sodium 140 Potassium 3.9 Chloride 109 H Carbon Dioxide 26 BUN 22 H Creatinine 0.74 Calcium 8.8 Liver Function 03/20/25 Range/Units 20:25 Total Bilirubin 0.3 (0.0-1.0) mg/dL Direct Bilirubin 0.1 (0.0-0.5) mg/dL AST 27 (5-31) U/L ALT 10 (0-31) U/L Alkaline Phosphatase 49 (39-117) U/L Albumin 4.0 (3.5-5.0) g/dL Urine 01/03/25 Range/Units 20:25 Urine Color Yellow Urine Appearance Clear Urine pH 5.5 (5.0-9.0) Ur Specific [place] >= 1.030 H (1.005-1.025) Urine Protein Trace (Neg-Trace) mg/dL Urine Glucose (UA) Negative (Negative) mg/dL Assessment and Plan (1) Acute appendicitis: Status: Acute (2) Abdominal pain: Status: Acute (3) Severe anemia: Status: Acute Plan Risks, benefits, alternatives laparoscopic possible open appendectomy were revi ewed with the patient and included but not limited to bleeding, infection, numbness, pain, scarring, bowel or bladder injury or leak and the patient wishes to proceed. All questions answered. Patient will be made an add on case for today. Quality Stroke Does the patient have a stroke diagnosis?: No VTE Prior VTE?: No VTE Risk Level:: Surgical - low VTE Device Contraindication: N/A - Device Ordered VTE Drug Contraindication: Treatment Not Indicated Procedures Date of Service Date of Service: 01/04/25
[2025-01-04] MEDS: LORazepam 1 MG TABLET PO (09:34)
[2025-01-04] MEDS: Morphine Sulfate 4 MG/ML CARTRIDGE IVPUSH (10:41)
[2025-01-04] MEDS: Piperacillin Sodium/Tazobactam 3.375 GM in 0.9 % Sodium Chloride 50 ML IV (10:42)
--- NOTE | 2025-01-04 11:50 | PHA.MEDREC ---
Addendum entered by Juana Ulloa RPh 01/04/25 12:43: Reviewed by [facility] Original Note: Pharmacy Consult ? Medication Reconciliation Pharmacy has completed the medication reconciliation. Spoke with patient and she confirmed she is not taking any medications at this time.
--- NOTE | 2025-01-04 13:43 | P.CONAN_ITS ---
[facility] Active Problems Active Problems: All Active Problems Severe anemia (Acute) Acute appendicitis (Acute) Abdominal pain (Acute) Family History Family history of problems with anesthesia: No Surgical History History of Problems with Anesthesia: No Social History Social History Patient Tobacco Use Status: Never used Tobacco Second Hand Smoke Exposure: No Substance Use Type: Marijuana Meds Allergies Allergy/AdvReac Type Severity Reaction Status Date / Time No Known Allergies Allergy Verified 01/03/25 19:29 Active Medications: Current Medications Lactated Ringer's (Lr) 1,000 mls @ 80 mls/hr IVCONT .[id number] GRECIA Home Medications ?Medication ?Instructions ?Recorded ?Confirmed ?Last Taken ?Type methadone 95 mg PO DAILY 01/04/25 01/04/25 01/03/25 History Exam Height,Weight and Vital Signs: Height 5 ft Weight 66.224 kg Last Vital Signs Temp 97.8 F 01/04/25 13:38 Pulse 65 01/04/25 13:38 Resp 16 01/04/25 13:38 BP 121/61 01/04/25 13:38 Pulse Ox 98 01/04/25 13:38 O2 Del Method Room Air 01/04/25 13:38 Pertinent Lab Results Pertinent Lab Results: Laboratory Tests 01/03/25 01/03/25 20:25 23:22 WBC 6.1 RBC 3.97 L Hgb 6.8 L* Hct 24.2 L MCV 61.0 L MCH 17.1 L MCHC 28.1 L RDW 19.3 H Plt Count 322 MPV 9.6 Immature Gran % (Auto) 0.2 Neut % (Auto) 56.6 Lymph % (Auto) 33.3 Mill[place] % (Auto) 7.6 Eos % (Auto) 1.6 Baso % (Auto) 0.7 Lymph # (Auto) 2.0 [place] # (Auto) 0.5 Eos # (Auto) 0.1 Baso # (Auto) 0.0 Abs Immat Gran (auto) 0.01 Absolute Neuts (auto) 3.4 Absolute Nucleated RBC 0.000 Nucleated RBC % (auto) 0.0 Sodium 140 Potassium 3.9 Chloride 109 H Carbon Dioxide 26 Anion Gap 9 L BUN 22 H Creatinine 0.74 Estim Creat Clear Calc 91.8 Estimated GFR > 60 Random Glucose 84 Calcium 8.8 Magnesium 1.9 Total Bilirubin 0.3 Direct Bilirubin 0.1 AST 27 ALT 10 Alkaline Phosphatase 49 Total Protein 7.5 Albumin 4.0 Beta HCG, Quant < 2 Urine Color Yellow Urine Appearance Clear Urine pH 5.5 Ur Specific [place] >= 1.030 H Urine Protein Trace Urine Glucose (UA) Negative Urine Ketones Trace Urine Blood Negative Urine Nitrite Negative Ur Leukocyte Esterase Negative Blood Type O Positive Antibody Screen NEGATIVE Crossmatch See Detail Airway Mallampati Class: II TM Dist: >3cm Neck ROM: Full Heart: rrr Lungs: cta Assessment and Plan Assessment Anesthesia Assessment: Anesthesia Plan Discussed and Chart Reviewed Final Anesthetic Review Family History of Problems with Anesthesia: No History of Problems with Anesthesia: No NPO: Yes ASA Class: II and Emergency Final Preanesthetic Review: No Changes in Pt Med Stat, Meds/Allgs Chart Reviewed and Consent Obtained/Reviewed Patient Risk: Low Procedure Risk: Intermediate Anesthetic Plan Anesthetic Plan: GA Disposition: Standard PACU
[2025-01-04] MEDS: Lactated Ringers 1,000 ML 80 ML IVCONT ×2 (13:44→16:45)
--- NOTE | 2025-01-04 15:23 | W.PM.OPN ---
Operative Note Operative Note Date of Service: 01/04/25 Narrative: Preoperative diagnosis: Acute appendicitis Postoperative diagnosis: Same Procedure: Laparoscopic appendectomy Surgeon: Yaron Reeves MD Back Tender Cylinder: Christiana Perez PA-C Anesthesia: General endotracheal Indications for procedure: 34-year-old female patient with 3 day history of abdominal pain in the right lower quadrant found to have a dilated appendix with mild inflammatory changes Operative findings: Minimally dilated appendix Specimen: Appendix Estimated blood loss: Less than 2 mL Complications: None Procedure details: Patient was brought to the OR and placed in a supine position. After administering general anesthesia the patient's abdomen was prepped with ChloraPrep and draped in a sterile fashion. A surgical time-out was called the consent confirmed. Patient received preoperative antibiotics and Venodyne boots were in place. Local anesthesia was infiltrated in the periumbilical region and a 5 mm incision made with a scalpel. A Veress needle was then inserted while elevating the abdominal cavity with towel clips. After positive drop test the abdomen was insufflated to a pressure 15 mmHg. The Veress needles were then removed and a 5 mm trocar inserted under direct vision. The camera was then inserted in the abdomen explored. Some adhesions were noted from the patient's prior abdominal surgeries. A 2nd 5 mm trocar was then placed in the lower midline. A 12 mm trocar was then placed in the left lower quadrant. The patient was then placed in a Trendelenburg position and rotated to the left. The appendix was identified in the right lower quadrant. This was grasped with a locking grasper. A LigaSure was then used to mobilize the appendix from the abdominal sidewall. The mesentery was then divided using the LigaSure. A Endo-LON stapler was then used with a purple 30 load to ligate and divide the appendix. The appendix was then placed in an Endo-Catch bag and brought out through the left lower quadrant abdominal incision. The abdomen was then explored and no bleeding identified. Uterus was noted to be enlarged. No other source of bleeding could be identified. CO2 was then evacuated and all trocars removed. No bleeding was noted from the trocar sites. Fascia was closed in the left lower quadrant incision using a [id number] 0 Polysorb suture. Skin was closed at all incisions using a subcuticular 4-0 Polysorb suture. Steri-Strips, 2 x 2 gauze and Tegaderm were then applied to all 3 incisions. The patient tolerated the procedure well. Sponge, instrument, needle counts reported as correct. The patient was transferred to PACU in stable condition.
[2025-01-04] MEDS: HYDROmorphone HCl 0.5 MG/0.5 ML SYRINGE IVPUSH ×2 (16:45→21:42)
--- NOTE | 2025-01-04 16:53 | HE.PHANOTE ---
methadone dose last verified [facility] 01/03 95 mg
[2025-01-04] MEDS: methADONE HCl 20 MG/2 ML ORAL.CONC 95 MG PO (17:44)
[2025-01-04] MEDS: Acetaminophen 1,000 MG/100 ML PIGGYBACK 400 MG IV (20:54)
[2025-01-05] MEDS: oxyCODONE HCl Immed Release 5 MG TABLET PO (00:56)
[2025-01-05] MEDS: HYDROmorphone HCl 0.5 MG/0.5 ML SYRINGE IVPUSH (01:56)
[2025-01-05] MEDS: Acetaminophen 1,000 MG/100 ML PIGGYBACK 400 MG IV ×3 (02:23→15:27)
[2025-01-05] MEDS: Lactated Ringers 1,000 ML 80 ML IVCONT ×2 (02:51→16:29)
[2025-01-05 03:30] VITALS: BP 124/67; PULSE 44; RESP 16; TEMP 36.4; O2SAT 100
[2025-01-05] MEDS: HYDROmorphone HCl 0.5 MG/0.5 ML SYRINGE 1 MG IVPUSH ×5 (04:21→19:53)
[2025-01-05 07:27] LABS: MANUAL DIFF FLAG NO
[2025-01-05 07:39] VITALS: BP 134/78; PULSE 52; RESP 16; TEMP 36.9; O2SAT 100
[2025-01-05] MEDS: 0.9 % Sodium Chloride Flush 3 ML SYRINGE IVFLUSH ×2 (07:49→15:28)
[2025-01-05 07:55] LABS: Basophils Percent Auto 0.3 % (0-2); Eosinophils Percent Auto 0.4 % (0-4); Hematocrit 26.7 % (37.0-47.0); Imm Gran Abs Auto 0.02 X10*3/uL (0.00-0.03); Imm Gran Pct Auto 0.3 % (0.0-0.4); Lymphocytes Absolute Auto 1.6 X10*3/uL (1.2-4.9); Lymphocytes Percent Auto 21.6 % (20-40); Mean Corpuscular Hemoglobin 18.8 pg (27.0-33.0); Mean Corpuscular Volume 62.7 fL (80.0-98.0); Mean Platelet Volume 10.1 fL (9.4-12.3); Monocytes Absolute Auto 0.6 X10*3/uL (0.1-1.2); Monocytes Percent Auto 7.8 % (2-11); Neutrophils Absolute Auto 5.2 x10*3/uL (2.0-8.3); Neutrophils Percent Auto 69.6 % (45-73); Platelet Count 278 X10*3/uL (160-400); Red Blood Count 4.26 X10*6/uL (4.20-5.50); Red Cell Distribution Width 21.8 % (11.0-16.0); White Blood Count 7.4 X10*3/uL (4.8-10.8)
--- NOTE | 2025-01-05 08:55 | P.CONOB_ITS ---
LANDSCAPE PHOTOGRAPHER - CN: HPI Data of Consult Consult date: 01/05/25 Requesting Physician: Yaron Reeves MD Primary Care Provider: None Physician Consult Narrative Narrative: I was consulted on Amalia Chan who is a 34 year old female underwent laparoscopic appendectomy yesterday was found to be anemic. The patient gives a history of regular heavy menstrual cycles over the last 3 years associated passage of blood clots and pelvic cramping, no other associated symptoms no hirsutism or nipple discharge. H&H today was 8.8/26.7 HCG in the emergency room was less than 2 CT scan, pelvic viscera uterus and adnexa were unremarkable cc:: CC: Yaron Reeves MD [facility] Surgical History Surgical History History of Social History Social History Household Members: Family and Children Housing: House Do you presently have visiting nurse or other home services: No Patient Tobacco Use Status: Never used Tobacco Second Hand Smoke Exposure: No Substance Use Type: Marijuana service: No Meds Allergies Allergy/AdvReac Type Severity Reaction Status Date / Time No Known Allergies Allergy Verified 01/03/25 19:29 Active Medications: Current Medications Calcium Carbonate (Calcium Carbonate 750 Mg Tab.Chew) 750 mg PO Q4H PRN PRN Reason: Heartburn Hydromorphone HCl (Hydromorphone Hcl 0.5 Mg/0.5 Ml Syringe) 1 mg IVPUSH Q3H PRN; Protocol PRN Reason: Pain, Severe (Pain Scale 7-10) Last Admin: 01/05/25 07:48 Dose: 1 mg Lactated Ringer's (Lr) 1,000 mls @ 80 mls/hr IVCONT .[id number] [facility] Last Admin: 01/05/25 02:51 Dose: 80 mls/hr Acetaminophen (Ofirmev) 1,000 mg in 100 mls @ 400 mls/hr IV Q6H [facility] Stop: 01/05/25 15:14 Last Infusion: 01/05/25 08:43 Dose: Infused Magnesium Hydroxide (Milk Of Magnesia 30 Ml Oral.Susp) 30 ml PO DAILY PRN PRN Reason: Constipation Melatonin (Melatonin 3 Mg Tablet) 6 mg PO BEDTIME PRN PRN Reason: Insomnia Methadone HCl (Methadone Hcl 20 Mg/2 Ml Oral.Conc) 95 mg PO DAILY@1600 [facility] Naloxone HCl (Naloxone Hcl 0.4 Mg/Ml Vial) 0.04 mg IVPUSH Q5M PRN PRN Reason: Excessive sedation or RR < 8 Ondansetron HCl (Ondansetron Hcl 4 Mg/2 Ml Vial) 4 mg IVPUSH QID PRN PRN Reason: Nausea Oxycodone HCl (Oxycodone Hcl Immed Release 5 Mg Tablet) 5 mg PO Q6H PRN PRN Reason: Pain, Moderate(Pain Scale 4-6) Last Admin: 01/05/25 00:56 Dose: 5 mg Sodium Chloride (0.9 % Sodium Chloride Flush 3 Ml Syringe) 3 ml IVFLUSH QSHIFT [facility] Last Admin: 01/05/25 07:49 Dose: 3 ml Home Medications ?Medication ?Instructions ?Recorded ?Confirmed ?Last Taken ?Type methadone 95 mg PO DAILY 01/04/25 01/04/25 01/03/25 History LANDSCAPE PHOTOGRAPHER Physical Exam Vitals Vital signs: Temp Pulse Resp BP Pulse Ox O2 Del Method 98.5 F 52 16 134/78 100 Room Air 01/05/25 07:39 01/05/25 07:39 01/05/25 07:39 01/05/25 07:39 01/05/25 07:39 01/05/25 07:39 BMI result Body Mass Index 28.5 Female Genitalia (Pelvic) Bladder/Urethra: Normal meatus Vulva: No lesions Vagina: Nontender and No erythema Cervix: Grossly normal Uterus: Normal size Adnexa/Parametria: Adnexal Tenderness: None, Adnexal Mass: None and Parametrial Tenderness: None Additional Comments: Minimal blood per vagina, with no evidence of active vaginal bleeding LANDSCAPE PHOTOGRAPHER - Results Labs 01/05/25 07:08 01/03/25 20:25 Labs: Short CBC 01/05/25 Range/Units 07:08 WBC 7.4 (4.8-10.8) X10*3/uL Hgb 8.0 L (12.0-16.0) g/dl Hct 26.7 L (37.0-47.0) % Plt Count 278 (160-400) X10*3/uL Urine 01/03/25 Range/Units 20:25 Urine Color Yellow Urine Appearance Clear Urine pH 5.5 (5.0-9.0) Ur Specific [place] >= 1.030 H (1.005-1.025) Urine Protein Trace (Neg-Trace) mg/dL Urine Glucose (UA) Negative (Negative) mg/dL Antibody Screen Antibody Screen NEGATIVE 01/03/25 23:22 Assessment and Plan (1) Abnormal uterine bleeding (AUB): Status: Acute GC and chlamydia with BV panel taken, repeat CBC, TSH, ordered for tomorrow a.m. and pelvic ultrasound ordered for today. Discussed with the patient the different causes of abnormal bleeding including thyroid disorders, uterine and ovarian pathology, endometrial hyperplasia, carcinoma and other potential causes. Discussed with the patient the work up including CBC (to r/o anemia), TSH, pelvic Ultrasound, endometrial biopsy to r/o endometrial pathology and co testing. Discussed with the patient the options of treatment including Lysteda, control pills (both options are not optimal for postoperative period with potential higher risk of thrombosis), levo norgestrel IUD, endometrial ablation and hysterectomy (last 2 options are not viable for the patient since she is interested future fertility). All pros, cons, risks and benefits if each option was discussed with the patient and the patient decided to go ahead with Mirena IUD so a more detailed discussion about it was conducted including mechanism of action, risks (uterine perforation, infection, injury to bladder, bowel, displacement, and others) benefits (hypo menorrhea, amenorrhea, ...). GC/CT were taken and since the patient is not having any active vaginal bleeding and there is no Mirena IUD available for inpatient, will schedule Mirena IUD insertion on Tuesday in the office with an endometrial biopsy and co testing . Instructions given to patient to call and schedule an appointment on Tuesday. All questions answered, the patient verbalized understanding
--- NOTE | 2025-01-05 09:00 | PM.PNGS ---
Subjective Subjective Date of Service: 01/05/25 Interval history: Continues to complain of abdominal pain mainly left lower quadrant. Reports heavy menstrual bleeding lasting 5-6 days with severe cramps. 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 Discussed her severe anemia and recommended underwriting internship evaluation. Physical Exam Vital Signs: Vital Signs: Last Vital Signs Temp 98.5 F 01/05/25 07:39 Pulse 52 01/05/25 07:39 Resp 16 01/05/25 07:39 BP 134/78 01/05/25 07:39 Pulse Ox 100 01/05/25 07:39 O2 Del Method Room Air 01/05/25 07:39 BMI result Body Mass Index 28.5 Const: General: awake Nutritional Appearance: well nourished Orientation/consciousness: patient oriented x3 Resp: Effort & Inspection: normal respiratory effort GI: Other: Trocar incisions are clean, dry and intact. Some incisional tenderness noted. Skin: Other: Warm, dry Neuro: General: patient oriented x3 Extrem: General: No edema Objective Data Active Medications Calcium Carbonate (Calcium Carbonate 750 Mg Tab.Chew) 750 mg PO Q4H PRN PRN Reason: Heartburn Hydromorphone HCl (Hydromorphone Hcl 0.5 Mg/0.5 Ml Syringe) 1 mg IVPUSH Q3H PRN; Protocol PRN Reason: Pain, Severe (Pain Scale 7-10) Last Admin: 01/05/25 07:48 Dose: 1 mg Documented By: JANAK Lactated Ringer's (Lr) 1,000 mls @ 80 mls/hr IVCONT .[id number] [facility] Last Admin: 01/05/25 02:51 Dose: 80 mls/hr Documented By: SARAI Acetaminophen (Ofirmev) 1,000 mg in 100 mls @ 400 mls/hr IV Q6H [facility] Stop: 01/05/25 15:14 Last Infusion: 01/05/25 08:43 Dose: Infused Documented By: JANAK Magnesium Hydroxide (Milk Of Magnesia 30 Ml Oral.Susp) 30 ml PO DAILY PRN PRN Reason: Constipation Melatonin (Melatonin 3 Mg Tablet) 6 mg PO BEDTIME PRN PRN Reason: Insomnia Methadone HCl (Methadone Hcl 20 Mg/2 Ml Oral.Conc) 95 mg PO DAILY@1600 [facility] Naloxone HCl (Naloxone Hcl 0.4 Mg/Ml Vial) 0.04 mg IVPUSH Q5M PRN PRN Reason: Excessive sedation or RR < 8 Ondansetron HCl (Ondansetron Hcl 4 Mg/2 Ml Vial) 4 mg IVPUSH QID PRN PRN Reason: Nausea Oxycodone HCl (Oxycodone Hcl Immed Release 5 Mg Tablet) 5 mg PO Q6H PRN PRN Reason: Pain, Moderate(Pain Scale 4-6) Last Admin: 01/05/25 00:56 Dose: 5 mg Documented By: SARAI Sodium Chloride (0.9 % Sodium Chloride Flush 3 Ml Syringe) 3 ml IVFLUSH QSHIFT [facility] Last Admin: 01/05/25 07:49 Dose: 3 ml Documented By: RADHAME Labs 01/05/25 07:08 01/03/25 20:25 Labs: Laboratory Results - last 24 hr 01/05/25 07:08 MCV 62.7 L MCH 18.8 L MCHC 30.0 L RDW 21.8 H Plt Count 278 MPV 10.1 Immature Gran % (Auto) 0.3 Neut % (Auto) 69.6 Lymph % (Auto) 21.6 Adams % (Auto) 7.8 Eos % (Auto) 0.4 Baso % (Auto) 0.3 Lymph # (Auto) 1.6 Adams # (Auto) 0.6 Eos # (Auto) 0.0 Baso # (Auto) 0.0 Abs Immat Gran (auto) 0.02 Absolute Neuts (auto) 5.2 Absolute Nucleated RBC 0.000 Nucleated RBC % (auto) 0.0 Procedures Date of Service Date of Service: 01/05/25 Progress Note: A&P Assessment and plan (1) Severe anemia: Status: Acute (2) Acute appendicitis: Status: Acute (3) Menorrhagia with regular cycle: Status: Acute Plan Pod 1 status post laparoscopic appendectomy. Patient complains of left lower quadrant abdominal pain which may be incisional. I am concerned about what appeared to be an enlarged uterus and a history of heavy uterine bleeding and severe anemia requiring transfusion. We will check pelvic ultrasound, consult Dr. Jarvis. Continue clear liquid diet for now. Time Spent With Patient Time: Total time managing care of this patient today ____ minutes. Quality Stroke Does the patient have a stroke diagnosis?: No VTE Prior VTE?: No VTE Risk Level:: Surgical - low VTE Device Contraindication: N/A - Device Ordered VTE Drug Contraindication: Treatment Not Indicated
[2025-01-05] MEDS: diphenhydrAMINE HCL 50 MG/ML VIAL IVPUSH (10:51)
--- NOTE | 2025-01-05 11:12 | MHC.CM.PN ---
pt is independent has a ride home dc plan home no sevices
[2025-01-05 11:54] LABS: Bacterial Vaginosis PCR NEGATIVE (Negative); Candida Group PCR NOT DETECTED (Not Detect); Candida glab krusei PCR NOT DETECTED (Not Detect); Trichomonas vaginalis PCR NOT DETECTED (Not Detect)
[2025-01-05 12:25] LABS: CT PCR NOT DETECTED (Not Detect.); NG PCR NOT DETECTED (Not Detect.)
[2025-01-05] MEDS: Ketorolac Tromethamine 15 MG/ML VIAL IVPUSH ×2 (13:29→18:37)
--- NOTE | 2025-01-05 15:08 | HO.POSTANES ---
Post Anesthesia Evaluation Post Anesthesia Evaluation Date of Service: 01/05/25 Vital Signs: Vital Signs Temp Pulse Resp BP Pulse Ox O2 Del Method 01/05/25 07:39 98.5 F 52 16 134/78 100 Room Air 01/05/25 03:30 97.5 F 44 L 16 124/67 100 Room Air Anesthesia: General Endotracheal-GETA Mental Status: Awake Pain Control: Satisfactory (most likely menstrual cramps) Nausea/Vomiting: None Hydration: Adequate Anesthesia-Related Issues: No Anes. Related Issues
[2025-01-05] MEDS: methADONE HCl 20 MG/2 ML ORAL.CONC 95 MG PO (15:27)
[2025-01-05 15:52] VITALS: BP 115/72; PULSE 60; RESP 18; TEMP 36.6; O2SAT 99
[2025-01-05 19:37] VITALS: BP 100/53; PULSE 80; RESP 16; TEMP 36.4; O2SAT 100
[2025-01-06] MEDS: Ketorolac Tromethamine 15 MG/ML VIAL IVPUSH ×3 (00:54→12:45)
[2025-01-06] MEDS: 0.9 % Sodium Chloride Flush 3 ML SYRINGE IVFLUSH (00:55)
[2025-01-06 04:00] VITALS: BP 122/77; PULSE 58; RESP 18; TEMP 36.3; O2SAT 99
[2025-01-06] MEDS: HYDROmorphone HCl 0.5 MG/0.5 ML SYRINGE 1 MG IVPUSH ×3 (04:08→13:26)
[2025-01-06] MEDS: Lactated Ringers 1,000 ML 80 ML IVCONT (04:11)
[2025-01-06 07:31] LABS: MANUAL DIFF FLAG NO
[2025-01-06 07:33] LABS: Basophils Percent Auto 0.4 % (0-2); Eosinophils Absolute Auto 0.1 X10*3/uL (0.0-0.4); Hematocrit 26.7 % (37.0-47.0); Imm Gran Abs Auto 0.01 X10*3/uL (0.00-0.03); Imm Gran Pct Auto 0.2 % (0.0-0.4); Lymphocytes Absolute Auto 1.5 X10*3/uL (1.2-4.9); Lymphocytes Percent Auto 31.6 % (20-40); Mean Corpuscular Hemoglobin 19.2 pg (27.0-33.0); Mean Platelet Volume 9.7 fL (9.4-12.3); Monocytes Absolute Auto 0.4 X10*3/uL (0.1-1.2); Monocytes Percent Auto 8.3 % (2-11); Neutrophils Absolute Auto 2.8 x10*3/uL (2.0-8.3); Neutrophils Percent Auto 58.5 % (45-73); Platelet Count 274 X10*3/uL (160-400); Red Blood Count 4.16 X10*6/uL (4.20-5.50); Red Cell Distribution Width 22.1 % (11.0-16.0); White Blood Count 4.8 X10*3/uL (4.8-10.8)
[2025-01-06 07:35] LABS: Mean Corpuscular Volume 64.2 fL (80.0-98.0)
[2025-01-06 07:51] VITALS: BP 133/73; PULSE 56; RESP 16; TEMP 36.4; O2SAT 100
[2025-01-06 08:13] LABS: TSH reflex Free T4 2.88 uIU/mL (0.32-4.0)
--- NOTE | 2025-01-06 10:25 | P.PNGS_ITS ---
Subjective Subjective Date of Service: 01/06/25 Interval history: Overall feels improved after starting Toradol. Still has some tenderness in the left lower quadrant well-controlled with the current pain medication. Physical Exam 2 Vital Signs: Vital Signs: Last Vital Signs Temp 97.5 F 01/06/25 07:51 Pulse 56 01/06/25 07:51 Resp 16 01/06/25 07:51 BP 133/73 01/06/25 07:51 Pulse Ox 100 01/06/25 07:51 O2 Del Method Room Air 01/06/25 07:51 BMI result Body Mass Index 28.5 Const: General: awake Nutritional Appearance: well nourished O rientation/consciousness: patient oriented x3 Resp: Effort & Inspection: normal respiratory effort GI: Other: Trocar incisions are clean, dry and intact. Some incisional tenderness noted. Skin: Other: Warm, dry Neuro: General: patient oriented x3 Extrem: General: No edema Objective Data Active Medications Calcium Carbonate (Calcium Carbonate 750 Mg Tab.Chew) 750 mg PO Q4H PRN PRN Reason: Heartburn Hydromorphone HCl (Hydromorphone Hcl 0.5 Mg/0.5 Ml Syringe) 1 mg IVPUSH Q3H PRN; Protocol PRN Reason: Pain, Severe (Pain Scale 7-10) Last Admin: 01/06/25 08:35 Dose: 1 mg Documented By: JANAK Lactated Ringer's (Lr) 1,000 mls @ 80 mls/hr IVCONT .[id number] [facility] Last Admin: 01/06/25 04:11 Dose: 80 mls/hr Documented By: SARAI Ketorolac Tromethamine (Ketorolac Tromethamine 15 Mg/Ml Vial) 15 mg IVPUSH Q6H [facility] Last Admin: 01/06/25 06:20 Dose: 15 mg Documented By: SARAI Magnesium Hydroxide (Milk Of Magnesia 30 Ml Oral.Susp) 30 ml PO DAILY PRN PRN Reason: Constipation Methadone HCl (Methadone Hcl 20 Mg/2 Ml Oral.Conc) 95 mg PO DAILY@1600 [facility] Last Admin: 01/05/25 15:27 Dose: 95 mg Documented By: JANAK Co-signed By: LALA Naloxone HCl (Naloxone Hcl 0.4 Mg/Ml Vial) 0.04 mg IVPUSH Q5M PRN PRN Reason: Excessive sedation or RR < 8 Ondansetron HCl (Ondansetron Hcl 4 Mg/2 Ml Vial) 4 mg IVPUSH QID PRN PRN Reason: Nausea Oxycodone HCl (Oxycodone Hcl Immed Release 5 Mg Tablet) 5 mg PO Q6H PRN PRN Reason: Pain, Moderate(Pain Scale 4-6) Last Admin: 01/05/25 00:56 Dose: 5 mg Documented By: SARAI Sodium Chloride (0.9 % Sodium Chloride Flush 3 Ml Syringe) [facility] Last Admin: 01/06/25 08:27 Dose: Not Given Documented By: JANAK Non-Admin Reason: IV Running Zolpidem Tartrate (Zolpidem Tartrate 5 Mg Tablet) 5 mg PO BEDTIME PRN PRN Reason: Insomnia Labs 01/06/25 07:17 01/03/25 20:25 Labs: Laboratory Results - last 24 hr 01/05/25 01/06/25 10:00 07:17 MCV 64.2 L MCH 19.2 L MCHC 30.0 L RDW 22.1 H Plt Count 274 MPV 9.7 Immature Gran % (Auto) 0.2 Neut % (Auto) 58.5 Lymph % (Auto) 31.6 [place] % (Auto) 8.3 Eos % (Auto) 1.0 Baso % (Auto) 0.4 Lymph # (Auto) 1.5 [place] # (Auto) 0.4 Eos # (Auto) 0.1 Baso # (Auto) 0.0 Abs Immat Gran (auto) 0.01 Absolute Neuts (auto) 2.8 Absolute Nucleated RBC 0.000 Nucleated RBC % (auto) 0.0 TSH 2.88 Chlam trachomat DNA PCR NOT DETECTED N.gonorrhoeae DNA (PCR) NOT DETECTED T. vaginalis (PCR) NOT DETECTED Bact vaginosis (PCR) NEGATIVE C. krusei/glabrata (PCR) NOT DETECTED Mary group (PCR) NOT DETECTED Procedures Date of Service Date of Service: 01/06/25 Progress Note: A&P Assessment and plan (1) Severe anemia: Status: Acute (2) Acute appendicitis: Status: Acute (3) Menorrhagia with regular cycle: Status: Acute Plan Pod 2 status post laparoscopic appendectomy. Overall she is much improved with less abdominal pain. The menorrhagia appears to have stopped and her blood count is stable. Appreciate Dr. Jarvis's input. Ultrasound normal. He will follow up as outpatient. Recommended patient stay off IV pain medications today in preparation for discharge tomorrow. She expressed understanding. She also understands that pain medications can only be given for a short duration after discharge due to her prior history. She agrees with the plan. Time Spent With Patient Time: Total time managing care of this patient today ____ minutes. Quality Stroke Does the patient have a stroke diagnosis?: No VTE Prior VTE?: No VTE Risk Level:: Surgical - low VTE Device Contraindication: N/A - Device Ordered VTE Drug Contraindication: Treatment Not Indicated
[2025-01-06] MEDS: polyethylene glycoL 3350 17 GM POWD.PACK PO (14:24)
--- NOTE | 2025-01-06 14:31 | MHC.CM.PN ---
pt dcd home self care
--- NOTE | 2025-01-08 08:26 | P.DS_ITS ---
DS: Providers Provider Date of Service: 01/06/25 Date of admission: 01/04/25 15:37 Date of discharge: 01/06/25 Primary care physician: None Physician Attending physician on admission: Edgardo Lozoya Consults: 01/05/25 08:11 Consult to Obstetrics / Gynecology Routine Consulting Provider: Abram Jarvis Reason for consultation: Menorrhagia, severe anemia, abdominal pain Attending physician on discharge: Yaron Reeves DS: Diagnosis Discharge Diagnosis (1) Severe anemia: Status: Acute (2) Acute appendicitis: Status: Acute (3) Menorrhagia with regular cycle: Status: Acute DS: Summary Hospital Course Hospital Course: HPI AT ADMISSION: Amalia Chan is a 34 year old female presents with a 2 day history of progressively worsening right lower quadrant pain. She has never had this before. Because of progression of symptoms, she presents to emergency department for further evaluation. Workup including CT scan demonstrates findings consistent with appendicitis. No leukocytosis. No prior abdominal surgeries Patient has a history of iron-deficiency anemia but has not been worked up for this. She required 1 unit packed red blood cells in the ER. Patient also states she has an eating disorder. She does not think she has very heavy menses to account for her anemia. Patient admits that she has been very noncompliant regarding her own personal health and follow up/workup for her medical issues. HOSPITAL COURSE: The patient was admitted to the surgical service for further treatment of the acute appendicitis. She elected to proceed with laparoscopic appendectomy. She was added onto the OR schedule for that day. On 01/04/25, a laparoscopic appendectomy was performed by Dr. Reeves without complication. The patient tolerated the procedure well. She did well post operatively. However given her enlarged uterus and a history of heavy uterine bleeding with severe anemia requiring transfusion, pelvic ultrasound and obgyn was consulted. She was seen by [facility] attendant who ordered GC and chlamydia with BV panel taken, repeat CBC, TSH. All were normal. Plan for Mirena IUD insertion on Tuesday in the office with an endometrial biopsy and co testing. On the day of discharge, she felt well and was tolerating a solid diet without nausea or vomiting, had good pain control and was ambulating without difficulty. Menorrhagia improved. She was hemodynamically stable. Her abdomen was benign with appropriate post op tenderness and clean and intact dressings. Her H/H was stable. She felt ready for discharge. She was discharged to home on 01/06/25 in stable condition. She is to follow up in the office in 1 week. She is to follow up with her PCP and Obgyn. Status at Discharge Functional status at discharge: independent ambulation Overall status at discharge: patient is progressing back to baseline Time Attestation Discharge Coordination Time (in mins): 35 Quality: Safe Use of Opioids Does Pt have an Active Cancer Diagnosis on the Problem List?: No Quality: Stroke Does the patient have a stroke diagnosis?: No Physical Exam Vital Signs: Vital Signs: Last Vital Signs Temp 97.5 F 01/06/25 07:51 Pulse 56 01/06/25 07:51 Resp 16 01/06/25 07:51 BP 133/73 01/06/25 07:51 Pulse Ox 100 01/06/25 07:51 O2 Del Method Room Air 01/06/25 07:51 BMI result Body Mass Index 28.5 Const: General: comfortable, no acute distress and alert Orientation/consciousness: patient oriented x3 Resp: Effort & Inspection: normal respiratory effort GI: Inspection: No distended Skin: General skin exam: no rashes or lesions noted Neuro: General: patient oriented x3 and moves all extremities DS: Data Data Completed and Pending Pending studies at discharge: Pending at discharge 01/04/25 15:25 Surgical [PTH] Routine Discharge Plan Discharge Anticipated Discharge Date/Time: 01/06/25 14:25 Patient Disposition: Home, Self-Care Discharge Diagnosis: Acute appendicitis, Anemia Referrals: Yaron Reeves MD [Physician] - 1 Week Physician,None [Primary Care Provider] - 1 Week Abram Jarvis MD [Physician] - 1 Week Discharge Medications: New oxycodone 5 mg tablet 5 mg PO Q6H PRN (Reason: pain (scale score 7-10)) Qty: 15 0RF Rx Instructions: Partial Fill upon patient request. Continued methadone 95 mg PO DAILY Discharge Orders: Discharge Order (Routine); Ordered 01/06/25 Ordered By: Yaron Reeves Diet: Advance to usual diet Activity on Discharge: No heavy lifting Stand Alone Forms: Patient Portal Discharge page, Work/School Release Print Language: Dominican Activity Restrictions/Additional Instructions: If the incision area is tender, you may apply a warm wash cloth to the incision for short intervals (No more than 20 minutes on, followed by at least 20 minutes off). Do not use creams, lotions, or topical antibiotics unless instructed to do so by your surgeon. These can cause infection or allergic reaction. Ok to shower. You have dissolvable suture which do not need to be removed. . Call Your Doctor If: -Your temperature exceeds 101.5? F -You experience excessive pain or swelling -You have an unexpected reaction to medication -You have excessive bleeding -You experience continued vomiting/nausea -Your incision begins to separate -Your incision shows signs of infection such as increased redness, swelling, excessive pain, drainage (light blood or clear fluid is normal) or heat No lifting > 10 pounds for two weeks Care Plan Goals: Return to normal diet and activity Health Concerns: Abdominal pain in the right lower quadrant abdomen Plan of Treatment: Laparoscopic appendectomy on 01/04/2025 Assessment: Acute appendicitis Anemia Discharge Date/Time: 01/06/25 15:02
== END 2025-01-06 15:02 | disposition home or self-care (01) | DRG 234 ==
LOC: HO.SSSA 15:39 → HO.S3 15:45
PROVIDERS: Obstetrics & Gynecology; Physician Assistant Medical; Admitting Provider Surgery; Visit Provider Surgery
PROC: 0DTJ4ZZ Resection of Appendix, Percutaneous Endoscopic Approach (ICD-10-PCS; CPT 44970; principal; 2025-01-04 14:00)
DX: K35.80 Unspecified acute appendicitis (principal); D64.9 Anemia, unspecified; N92.0 Excessive and frequent menstruation with regular cycle; Z91.199 Patient's noncompliance with other medical treatment and regimen due to unspecified reason
CPT/HCPCS: 36415; 74177; 76830; 76856; 80048; 80076; 81003; 81515; 83735; 84443; 84702; 85025; 86850; 86900; 86901; 86923; 87491; 87591; 88304; 93005; J0131; J0330; J1100; J1171; J1200; J1885; J2003; J2250; J2270; J2405; J2543; J2704; J3010; J7120; P9016; Q9967

== ENCOUNTER 2025-01-04 15:37 | Outpatient (BNV) | payer OTHER, SELFPAY | END 2025-01-05 11:43 | PROVIDERS: Admitting Provider Surgery; Visit Provider Radiology Vascular & Interventional Radiology | DX: N93.9 Abnormal uterine and vaginal bleeding, unspecified (principal) | CPT/HCPCS: 76830; 76856 ==

== ENCOUNTER → 2025-01-04 15:37 | Outpatient (BNV) | payer OTHER, SELFPAY | PROVIDERS: Admitting Provider Surgery; Visit Provider Obstetrics & Gynecology | DX: N93.9 Abnormal uterine and vaginal bleeding, unspecified (principal) | CPT/HCPCS: 99222 ==

== ENCOUNTER 2025-01-07 13:53 | Outpatient (AMB) | payer OTHER, SELFPAY ==
--- NOTE | 2025-01-07 14:03 | MHC.OFFVIS ---
Intake Visit Reasons: EMB/ Mirena insertion/cotest Allergies No Known Allergies Allergy (Verified 01/03/25 19:29) HPI Comments Details: Presenting for inpatient follow-up with the patient was admitted to the hospital 3 days ago after ER visit with the abdominal pain was diagnosed with appendicitis underwent laparoscopic salpingectomy and was found to be anemic. The patient gives a history of regular heavy menstrual cycles over the last 3 years associated passage of blood clots and pelvic cramping, no other associated symptoms no hirsutism or nipple discharge. H&H in hospital was 8.8/26.7 repeat was stable HCG in the emergency room was less than 2 TSH within normal GC/CT with BV panel was negative CT scan, pelvic viscera uterus and adnexa were unremarkable Pelvic ultrasound showed the following: Transvaginal scanning performed. The uterus is 8.8 cm length. Normal myometrium. Endometrium 2 mm thickness. Right ovary 2.2 x 1.3 x 4.8 cm. Left ovary 2.6 x 1.4 x 1.6 cm. Normal color Doppler of both ovaries. No free fluid. [facility] Surgical History History of Social History Household Members: Family and Children Housing: House Do you presently have visiting nurse or other home services: No Patient Tobacco Use Status: Never used Tobacco Second Hand Smoke Exposure: No Substance Use Type: Marijuana service: No Review of Systems Const All systems reviewed & are unremarkable except as noted in HPI and below Card Reports as per HPI Resp Reports as per HPI GI Reports as per HPI and Reports no additional complaints Reports as per HPI Physical Exam Const General: cooperative, healthy appearing and comfortable Chest Chest palpation & inspection: normal inspection of the chest and normal palpation of entire chest wall Breast/axilla inspection: normal inspection of the breasts and normal inspection of the axillae Breast/axilla palpation: normal palpation of the breasts, normal palpation of the axillae and no axillary lymphadenopathy Resp Effort & Inspection: normal respiratory effort Auscultation: clear to auscultation bilaterally Percussion: percussion normal Cardio Palpation: normal PMI Rate: regular rate Rhythm: regular rhythm Heart sounds: no murmurs and no rubs Peripheral pulses: Peripheral pulses 2+ throughout GI Inspection: Yes normal to inspection Palpation (GI): Soft to palpation, nontender, no guarding, not rigid and No hepatosplenomegaly present Percussion: Yes normal to percussion Auscultation: normal bowel sounds Rectal Exam - Female: deferred General: Yes bladder normal to palpation External Female Exam: No lesion Speculum Exam - Vagina: normal appearance of the vagina, normal palpation, normal vaginal discharge and not erythematous Speculum Exam - Cervix: normal appearance of the cervix and normal palpation Bimanual exam- vagina & uterus: normal bimanual exam, normal palpation, uterine size normal, bladder normal to palpation, consistency normal and normal palpation Bimanual Exam- Adnexa, other: normal adnexae, no masses and no tenderness Office Procedures Endometrial Biopsy Details: The patient was counseled regarding the indication and benefits of endometrial sampling to rule out endometrial pathology including not limited to endometrial hyperplasia or endometrial cancer and others; The alternatives (Either do nothing vs. hysteroscopy D&C) & the risks were discussed with the patient including but not limited: pain, uterine perforation, bleeding, infection, possible injury to bladder, bowel, ureter, possible need for blood transfusion with all its possible risks. The patient verbalized understanding all questions answered and signed consent. Urine test done in the office was negative The patient was placed into the dorsal lithotomy position; a speculum was inserted in the vagina. Using aseptic technique for the procedure, the cervix was cleansed with Betadine. The anterior lip of the cervix was grasped with a single tooth tenaculum. The uterus was sounded to 7 cm with a 4 mm Pipelle was used. Tissues samples were obtained and placed in formalin, in a patient labeled container and sent to the pathology department. At the end of the procedure, there was minimal bleeding noted The patient tolerated the procedure well and was discharged in good condition with the following instructions: Nothing in the vagina until the bleeding stops. No sex until the bleeding stops, to call if any of the following occurs: fever (>100.4), flu-like symptoms, abdominal pain, heavy bleeding, four smelling vaginal discharge. The patient was instructed to schedule a Follow up appointment in 2 weeks to discuss pathology results of the biopsy and treatment options. This note was generated with a voice recognition program. Some errors may have been overlooked during the review of this note. Sometimes these errors may affect the content or meaning of a given sentence. 85503-Pxdtuvhhhwk Biopsy IUD Insert/Removal Details Details: The patient is presenting for Mirena IUD insertion Urine test was done in the office and was negative; All the contraindications were excluded. The following possible complications were discussed with the patient: Intrauterine , Ectopic , Sepsis, Pelvic Infection, Irregular Bleeding and Amenorrhea, Perforation, Expulsion, Ovarian Cysts, Breast Cancer, The following adverse effects were discussed with the patient: alteration of menstrual bleeding pattern, including: unscheduled uterine bleeding decreased uterine bleeding increased scheduled uterine bleeding female genital tract bleeding ,amenorrhea , genital discharge , vulvovaginitis , breast pain , benign ovarian cyst and associated complications , dysmenorrhea , Gastrointestinal disorders abdominal/pelvic pain, headache/migraine , back pain , acne , depression Alternative options were discussed with the patient including but not limited: control pills, patch, NuvaRing, Depo-medroxyprogesterone acetate, Nexplanon, copper IUD, sterilization, vasectomy, others The procedure was explained in detail to patient , at the end patient signed the informed consent obtained. A no touch technique was used throughout the procedure. A speculum was placed into vagina and cervix was cleaned with betadine). A tenaculum was placed. A plastic sound was advanced through the external and internal os until it reached the fundus of the uterus, the depth was 8 cm. The sound was then withdrawn. The IUD was loaded in a sterile manner and advanced into position. The string was visualized and cut to 3 cm. Tenaculum site hemostatic. All instruments removed from vagina. Patient tolerated the procedure well. NO complications were noted. Patient was instructed to call for fever over 100.4, significant pain unrelieved by Motrin, IUD expulsion, heavy bleeding, or abnormal discharge. In addition, the following clinical considerations were discussed with the patient to call for removal: A stroke or heart attack ,Very severe or migraine headaches ,Unexplained fever ,Yellowing of the skin or whites of the eyes, as these may be signs of serious liver problems , or suspected , Pelvic pain or pain during sex ,HIV positive seroconversion in herself or her partner , Possible exposure to sexually transmitted infections Unusual vaginal discharge or genital sores , severe vaginal bleeding or bleeding that lasts a long time, or if she misses a menstrual period, Inability to feel Mirena's threads Counseled the patient that the IUD does not protect against STI's, recommended use of condoms for the first 7 days post insertion and explained to the patient that condoms are recommended for patients at risk for sexually transmitted infections. Informed the patient that Mirena IUD is FDA approved for 8 years for contraception for 5 years for the treatment of heavy menses Instructed the patient to schedule a Follow up appointment in 4 to 6 weeks following insertion. This note was generated with a voice recognition program. Some errors may have been overlooked during the review of this note. Sometimes these errors may affect the content or meaning of a given sentence. 33137-FMX Insertion Procedure code (CPT) selection complete Office Meds Mirena 21 mcg/24 hr (up to 8 years) 52 mg intrauterine device Performing Provider: Abram Jarvis MD Performing Location: [facility] [place] [facility] Documented (not given) by: Abram Jarvis MD on 01/07/25 14:37 Dose Route Admin Location Dispensed Lot Number Expiration Date [facility] [employer] 1 device intrauterine ea Assessment & Plan Assessment & Plan (1) Abnormal uterine bleeding (AUB): Comment: anemia Code(s): N93.9 - Abnormal uterine and vaginal bleeding, unspecified Category: Medical Plan: Iron sulfate 325 mg p.o. t.i.d. recommended. Repeat CBC in 3 months ordered. Co testing done, EMB done, see procedure note Discussed with the patient the results of the work up done and options of treatment including Lysteda, control pills, Mirena IUD, endometrial ablation and hysterectomy. All pros, cons, risks and benefits if each option was discussed with the patient and the patient decided to go ahead with Mirena IUD so a more detailed discussion about it was conducted including mechanism of action, risks (uterine perforation, infection, injury to bladder, bowel, displacement, and others) benefits (hypo menorrhea, amenorrhea, ...). GC/CT were taken 2 days ago and were negative and Mirena IUD insertion done , see procedure note. All questions answered, the patient verbalized understanding (2) Encounter for insertion of Mirena IUD: Code(s): Z30.430 - Encounter for insertion of intrauterine contraceptive device Category: Medical Plan: Mirena IUD inserted, see procedure Orders: Orders Complete Blood Count no Diff 3 Months N93.9 - Abnormal uterine and vaginal bleeding, unspecified AMB Endometrial Biopsy Today N93.9 - Abnormal uterine and vaginal bleeding, unspecified AMB IUD Insertion/Removal - Practice Supplied Today N93.9 - Abnormal uterine and vaginal bleeding, unspecified, Z30.430 - Encounter for insertion of intrauterine contraceptive device Medications: New Mirena (levonorgestrel) 1 device intrauterine ONCE 1 ea 0RF IUD insertion NS N93.9 - Abnormal uterine and vaginal bleeding, unspecified, Z30.430 - Encounter for insertion of intrauterine contraceptive device Coding Level of Care Code Est Pt Level 3 (55867) Procedure Only Diagnoses Abnormal uterine bleeding (AUB) N93.9 Encounter for insertion of Mirena IUD Z30.430 CPT Codes Endometrial Biopsy - CPT: 75046-Xrvidctqmgj Biopsy ([id number]) Details - CPT: 97297-NZF Insertion ([id number])
== END 2025-01-07 14:43 | disposition home or self-care (01) ==
PROVIDERS: Visit Provider Obstetrics & Gynecology
DX: N93.9 Abnormal uterine and vaginal bleeding, unspecified (principal); Z30.430 Encounter for insertion of intrauterine contraceptive device
CPT/HCPCS: 58100; 58300; 99213

== ENCOUNTER 2025-01-07 13:53 | Outpatient (REF) | payer OTHER, SELFPAY ==
[2025-01-10 15:04] LABS: HPV Genotype 16 Negative (Negative); HPV Genotype 18 Negative (Negative); HPV High Risk Negative (Negative)
== END 2025-01-07 13:54 | disposition home or self-care (01) ==
LOC: HO.LNP 13:53
PROVIDERS: Visit Provider Obstetrics & Gynecology
DX: Z30.430 Encounter for insertion of intrauterine contraceptive device (principal); N93.9 Abnormal uterine and vaginal bleeding, unspecified
CPT/HCPCS: 58100; 58300; 87626; 88175; 88305; 99212; J7298

== ENCOUNTER 2025-01-11 09:06 | Outpatient (AMB) | payer OTHER, SELFPAY ==
--- NOTE | 2025-01-11 09:07 | MHC.OFFVIS ---
Vital Signs 01/11/25 09:16 Height 5 ft Weight 150 lb BMI 29.3 BP 122/79 Blood Pressure Location Lt brachial Position Sitting Pulse 73 Intake Visit Reasons: s/p apendectomy Intake Note: Patient is seen in office for post op assessment post Laparoscopic appendectomy. Pt c/o: admits to yellow discharge in the belly button area, and pain in the left incision surgery:01/04/25 [facility] Required: No Accompanied by: Other Relationship Allergies No Known Allergies Allergy (Verified 01/11/25 09:16) Medication List - Last Reconciled 01/11/25 by Yaron Reeves MD ibuprofen 600 mg PO Q6H PRN [methadone 95 mg PO DAILY] HPI Comments Details: 34-year-old female patient returning 1 week following a laparoscopic appendectomy performed on 01/04/2025. Operative findings were early appendicitis without abscess or perforation. She reports some yellowish discharge from the incision her her girlfriend. She denies any fever or chills. She did have some nausea but denies any vomiting. She is eating well and denies any problems with her bowels. [facility] Surgical History History of laparoscopic appendectomy (01/04/25) History of Social History Household Members: Family and Children Housing: House Do you presently have visiting nurse or other home services: No Patient Tobacco Use Status: Never used Tobacco Second Hand Smoke Exposure: No Substance Use Type: Marijuana service: No Physical Exam Vital Signs: Last Vital Signs Pulse 73 01/11/25 09:16 BP 122/79 01/11/25 09:16 BMI result Body Mass Index 29.3 Const General: no acute distress Nutritional Appearance: well nourished Orientation/consciousness: patient oriented x3 Resp Effort & Inspection: normal respiratory effort GI Other: Soft and nondistended, well-healed trocar incisions without redness or discharge. Steri-Strips were removed with no evidence of infection or hernia. Neuro General: patient oriented x3 Extrem Other: No peripheral edema Assessment & Plan Assessment & Plan (1) Acute appendicitis: Code(s): K35.80 - Unspecified acute appendicitis Category: Medical Qualifiers: Acute appendicitis type: with localized peritonitis Appendicitis gangrene presence: without gangrene Appendicitis perforation presence: without perforation Appendicitis abscess presence: without abscess Qualified Code(s): K35.30 - Acute appendicitis with localized peritonitis, without perforation or gangrene Plan 33-year-old female patient returning 1 week following laparoscopic appendectomy. Her wounds are healing nicely without evidence of infection or discharge. No hernias identified. She should continue to avoid lifting until next week. She may resume work on 01/16/2025. She should follow up as needed. Medications: New ibuprofen 600 mg PO Q6H PRN 16 tabs 0RF pain K35.80 - Unspecified acute appendicitis Coding Level of Care Code Global (19036) Diagnoses Acute appendicitis with localized peritonitis, without perforation, abscess, or gangrene K35.30 Acute appendicitis type: with localized peritonitis Appendicitis gangrene presence: without gangrene Appendicitis perforation presence: without perforation Appendicitis abscess presence: without abscess
[2025-01-11 09:16] VITALS: BP 122/79; PULSE 73; BMI 29.3
== END 2025-01-11 09:48 | disposition home or self-care (01) ==
LOC: HO.HGS 09:06
PROVIDERS: Visit Provider Surgery
DX: K35.30 Acute appendicitis with localized peritonitis, without perforation or gangrene (principal)
CPT/HCPCS: 99024

== ENCOUNTER → 2025-01-11 09:06 | Outpatient (BNVA) | payer OTHER, SELFPAY | PROVIDERS: Visit Provider Surgery | DX: Z48.815 Encounter for surgical aftercare following surgery on the digestive system (principal); Z98.890 Other specified postprocedural states | CPT/HCPCS: 99212 ==

== ENCOUNTER 2025-01-31 16:05 | Outpatient (AMB) | payer OTHER, SELFPAY ==
--- NOTE | 2025-01-31 16:14 | A.OFFVIS_ITS ---
Vital Signs 01/31/25 16:17 BP 102/60 Intake Visit Reasons: IUD issues Intake Note: 1 month since placed on IUD, Tuesday started with cramping/heavier bleeding and blood clots. Noticed can feel plastic when placed fingers inside. Allergies No Known Allergies Allergy (Verified 01/11/25 09:16) HPI Comments Details: Presenting complaining of pelvic cramping and heavier bleeding over the last few days. The patient did well after IUD insertion few weeks ago with light spotting with no cramping. Few days ago start having pelvic cramping in the patient states that she felt the bottom of the IUD intravaginally and is requesting IUD removal. Has been taking iron sulfate 325 mg p.o. t.i.d. On 01/06 H&H was 8.7 [facility] Medical History (Updated 01/31/25 @ 16:46 by Abram Jarvis MD) Abnormal uterine bleeding (AUB) Acute appendicitis Surgical History History of laparoscopic appendectomy (01/04/25) History of Social History Household Members: Family and Children Housing: House Do you presently have visiting nurse or other home services: No Patient Tobacco Use Status: Never used Tobacco Second Hand Smoke Exposure: No Substance Use Type: Marijuana service: No Review of Systems Const All systems reviewed & are unremarkable except as noted in HPI and below Physical Exam General: Yes no CVA tenderness External Female Exam: normal external appearance and normal appearance of the urethra Speculum Exam - Vagina: normal appearance of the vagina, normal palpation, no lesions and no masses Speculum Exam - Cervix: normal appearance of the cervix, normal palpation, no lesions, no masses, nontender and Other cervical findings present (IUD string in place, IUD is not visualized) Bimanual exam- vagina & uterus: normal bimanual exam, normal palpation, uterine size normal, normal palpation, uterine shape normal, No Cervical tenderness present and non-tender Bimanual Exam- Adnexa, other: normal adnexae Back/Spine/Pelvis Back: no CVA tenderness Office Procedures IUD Insert/Removal Details Details: Counseling/Consent: After discussing with the patient the risks of the procedure including bleeding, infection, scar tissue formation, , possible injury to blood vessels or nerves, chronic arm pain, blood transfusion, and irregular unpredictable bleeding Alternative options were discussed with the patient including but not limited: Do nothing. The patient signed the consent and agreed with the plan; all questions answered. Urine test was done in the office and was negative Preop dx: Requesting IUD removal Op: IUD removal Post op dx: same EBL= 10 cc Procedure: The patient was put in the dorsal lithotomy position a speculum was inserted in the vagina the IUD thread identified. Using a Yahaira clamp the thread was grasped and the IUD pulled out with no complications. The patient tolerated the procedure well and was advised to use a different method for contraception. Discharge instructions: Instructions were given to the pt to call if temp>100.4, abdominal pain heavy vaginal bleeding, n/v occur. The patient verbalized understanding and all questions answered. This note was generated with a voice recognition program. Some errors may have been overlooked during the review of this note. Sometimes these errors may affect the content or meaning of a given sentence. 11270-WBL Removal Procedure code (CPT) selection complete Assessment & Plan Assessment & Plan (1) Encounter for IUD removal: Code(s): Z30.432 - Encounter for removal of intrauterine contraceptive device Category: Medical Plan: UPT done in the office was negative. Mirena IUD removed per patient request , see procedure note (2) Abnormal uterine bleeding (AUB): Comment: anemia Code(s): N93.9 - Abnormal uterine and vaginal bleeding, unspecified Category: Medical Plan: CBC stat ordered. Instructions given the patient to go to the lab Discussed with the patient the options of treatment including control pills , Depo- Provera, cyclic Provera. All pros, cons, risks and benefits if each option was discussed with the patient and the patient decided to go ahead with [facility] so a more detailed discussion re: control pills including mechanism of action, benefits (regular menses, less dysmenorrhea, less risk of ovarian cancer, ...), risks ( DVT, PE, Strokes, OK, ? increased breast ca, others). Instructions were given to use a back- up method for contraception x 1st 2 weeks, and to schedule a 3 months appointment for blood pressure check Orders: Orders Complete Blood Count no Diff Today N93.9 - Abnormal uterine and vaginal bleeding, unspecified Medications: New L norgest/e.estradiol-e.estrad 0.15 mg-30 mcg (84)/10 mcg (7) 1 tab PO DAILY 84 days 84 ea 0RF Coding Level of Care Code Est Pt Level 3 (81869) Diagnoses Encounter for IUD removal Z30.432 Abnormal uterine bleeding (AUB) N93.9 CPT Codes Details - CPT: 07368-WBH Removal ([id number])
[2025-01-31 16:17] VITALS: BP 102/60
== END 2025-02-01 08:54 | disposition home or self-care (01) ==
LOC: HO.HWS 16:05
PROVIDERS: Visit Provider Obstetrics & Gynecology
DX: N93.9 Abnormal uterine and vaginal bleeding, unspecified (principal); R10.2 Pelvic and perineal pain; Z30.432 Encounter for removal of intrauterine contraceptive device
CPT/HCPCS: 58301; 99213

== ENCOUNTER → 2025-01-31 16:05 | Outpatient (BNVA) | payer OTHER, SELFPAY | PROVIDERS: Visit Provider Obstetrics & Gynecology | DX: Z30.432 Encounter for removal of intrauterine contraceptive device (principal); N93.9 Abnormal uterine and vaginal bleeding, unspecified | CPT/HCPCS: 58301; 99212 ==

== ENCOUNTER 2025-02-01 11:55 | Outpatient (REF) | payer OTHER, SELFPAY ==
[2025-02-01 12:13] LABS: Hematocrit 32.4 % (37.0-47.0); Hemoglobin 9.7 g/dl (12.0-16.0); Mean Corpuscular HGB Conc 29.9 g/dl (31.0-35.0); Mean Corpuscular Hemoglobin 20.2 pg (27.0-33.0); Mean Corpuscular Volume 67.5 fL (80.0-98.0); Mean Platelet Volume 9.7 fL (9.4-12.3); Platelet Count 340 X10*3/uL (160-400); Red Cell Distribution Width 26.5 % (11.0-16.0); White Blood Count 6.6 X10*3/uL (4.8-10.8)
== END 2025-02-01 11:56 | disposition home or self-care (01) ==
LOC: HO.LAB 11:55
PROVIDERS: Visit Provider Obstetrics & Gynecology
DX: N93.9 Abnormal uterine and vaginal bleeding, unspecified (principal)
CPT/HCPCS: 36415; 85027

== ENCOUNTER 2025-02-19 13:04 | Outpatient (AMB) | payer OTHER, SELFPAY ==
--- NOTE | 2025-02-19 13:04 | MHC.OFFVIS ---
Intake Visit Reasons: EMB Results Allergies No Known Allergies Allergy (Verified 01/11/25 09:16) HPI Comments Details: The patient scheduled a telehealth visit for follow-up to discuss the results of her abnormal uterine bleeding workup and options of treatment. The patient is started on continuous control pills after Mirena IUD removal, her bleeding completely stopped within few days. CBC was not done The following workup was done.: H&H= 9.7/32.4 TSH, GC and chlamydia were negative. Endometrial biopsy pathology showed the following: Benign proliferative endometrium with breakdown; no atypia or carcinoma Co testing was done was negative. Pelvic ultrasound showed the following: The uterus is 8.8 cm length. Normal myometrium. Endometrium 2 mm thickness. Right ovary 2.2 x 1.3 x 4.8 cm. Left ovary 2.6 x 1.4 x 1.6 cm. Normal color Doppler of both ovaries. No free fluid. [facility] Medical History Abnormal uterine bleeding (AUB) Acute appendicitis Surgical History History of laparoscopic appendectomy (01/04/25) History of Social History Household Members: Family and Children Housing: House Do you presently have visiting nurse or other home services: No Patient Tobacco Use Status: Never used Tobacco Second Hand Smoke Exposure: No Substance Use Type: Marijuana service: No Review of Systems Const All systems reviewed & are unremarkable except as noted in HPI and below Reports as per HPI and Reports no additional complaints GI Reports no additional complaints Reports no additional complaints Telehealth Telehealth Telehealth Platform: Telephone Location of provider rendering services: practice address Location of patient: address on file Patient Identification confirmed using: Name, : Yes Telehealth method: video Patient verbally consented to treatment: Yes Patient verbally consented to billing insurance company: Yes Patient informed of any privacy concerns related to visit: Yes Minutes spent on Phone/Video with Pt.: 6 Assessment & Plan Assessment & Plan (1) Abnormal uterine bleeding (AUB): Comment: anemia Code(s): N93.9 - Abnormal uterine and vaginal bleeding, unspecified Category: Medical Plan: Iron sulfate 325 mg p.o. q.d. instructions given the patient to repeat CBC in 3 months determine the indication to continue iron sulfate or not. Recommended to the patient to continue continuous control pills, and to call in case of abnormal uterine bleeding or any other concerns. All questions answered, the patient verbalized understanding I spent a total of 20 minutes reviewing the chart, talking to the patient via video and documenting in the medical record. Coding Level of Care Code Tele Est Pt Level 3 (70297) Diagnoses Abnormal uterine bleeding (AUB) N93.9
--- OUTSIDE RECORDS SUMMARY | 2025-02-19 14:19 | XMS_ITS | Data Portability ---
Author Organization [facility], [address] Address [address] [place] [address] Care Team Providers Care Emt B Name Role Phone [facility] Prim [place] Care Provider Assessment No assessment recorded. Plan of Treatment Reminders Order Date Submit Date Provider Last Modified By Organization Details Last Modified Time Details Appointments None recorded. Lab rapid strep group A, throat 2022 023 [email or web address] [facility], [address] [place] [address], [id number], 3 12:32:19 rapid SARS CoV 2 Ag, QL IA, respiratory specimen 2022 023 [email or web address] [facility], [address] [place] [address], [phone], 3 12:32:19 streptococc us group A, culture, throat 2022 023 [email or web address], [address] [place] [address], [id number], 3 08:07:12 Referral None recorded. Procedures None recorded. Surgeries None recorded. Imaging None recorded. Medication Orders None recorded. Patient TargetsNo targets recorded. Patient Instructions Encounter Date Encounter Id Patient Instructions Last Modified By Organization Details Last Modified Time 10/27/2022 [id number] sore throat: car e instructions [email or web address] Not available 10/27/2022 12:32:19 Reason for Referral None Reported. Results Created Date Observation Date Name Description Value Unit Range Abnormal Flag Note LastModifiedBy Organization Detail LastModifiedTime 10/27/19 23 10/31/2022 BETA STREP GP A CULTU RE beta strep gp A culture NEGATI VE Refer ence Range : Negat charles Not Available [facility] ([facility]) [address] [facility], [place], [address], 10/31/2022 18:05:46 10/27/19 23 10/27/2022 rapid SARS CoV 2 Ag, QL IA, respi rator y speci men Unknown Analyte Normal =Negat charles Not Available [address] [place] [address], [phone], 10/27/2022 11:33:00 10/27/19 23 10/27/2022 rapid SARS CoV 2 Ag, QL IA, respi rator y speci men Unknown Analyte negati ve Not Available [address] [place] [address], [phone], 10/27/2022 11:33:00 10/27/19 23 10/27/2022 rapid strep group A, throa t Unknown Analyte Normal = Negati ve Not Available [address] [place] [address], [phone], 10/27/2022 11:28:47 10/27/1910/27/2022 rapid strep group A, throa t Unknown Analyte negati ve Not Available [address] [place] [address], [id number], 10/27/2022 11:28:47 Result Notes None recorded. Problems No Known Problems Procedures Surgical History Date Name Laterality Status Provider Name and Address Organization Details Recorded Time 2 delivery completed ARABELLA DEPINTO PA - [facility] 10/27/2022 11:32:51 8 delivery completed ARABELLA DEPINTO PA - [facility] 10/27/2022 11:32:48 Imaging Results None recorded. Procedure Notes None recorded. Medical Equipment None Reported. Allergies No known drug allergies Medications Not known to be on any medication Vitals Date Recorded Body height Body mass index (BMI) Body weight Pain severity - 0-10 verbal numeric rating [Score] - Reported Oxygen saturation Oxygen saturation in Arterial blood by Pulse oximetry Heart rate Respiratory rate Body temperature Systolic blood pressure Diastolic blood pressure Provider Name and Address Organization Details Last Updated DateTime 3 154.94 cm 35.9 kg/m2 90812.5 5 g 5 97 % 97 % 81 /min 18 /min 97.2 [degF] 117 mm[Hg] 77 mm[Hg] ARABELLA DAVIDRIOS PA - [facility] 3 11:34:25 Social History Question Answer Notes LastModified by Organizat ion Details LastModified Time Tobacco Smoking Status Never Smoker ARABELLA PRAVIN connor PA - [facility] 10/27/2022 11:32:28 What Is Your Level Of Alcohol Consumption? None Information not available 10/27/2022 Which Illicit Or Recreational Drugs Have You Used? Marijuana Information not available 10/27/2022 Do You Use Any Illicit Or Recreational Drugs? Yes Information not available 10/27/2022 Have You Recently Traveled Abroad? No Information not available 10/27/2022 Do You Or Have You Ever Used Any Other Forms Of Tobacco Or Nicotine? No Information not available 10/27/2022 Sex: Unknown Functional Status None recorded. Mental Status None recorded. Family History Relationship Description Onset Age of this Age Resolved Age Notes LastModified by Organization Details LastModified Time Father No current problems or disability Not available 10/27 11:32:14 Mother No current problems or disability Not available 10/27 11:32:14 Medical History No medical history recorded. Gynecological HistoryNo gynecological history recorded. Obstetrics History GPAL:G 0 P 0 0 0 0 Past Encounters Encounter ID Performer Location Encounter Start Date Encounter Closed Date Diagnosis/Indication Diagnosis SNOMED-CT Code Diagnosis ICD10 Code Diagnosis Note [id number] [facility] [address] [facility] [address] [place] [phone] 06/09/2021 13:28:00 06/09/2021 15:20:41 [id number] [facility] RADU lora [phone] 09/14/2015 13:08:40 09/14/2015 14:39:18 [id number] [facility] [facility] [address] [place] [address] 12/11/2020 19:30:28 12/11/2020 20:03:28 [id number] [address] [facility] [address] [place] [phone] 03/17/2020 15:41:12 03/17/2020 16:55:45 [id number] Joe Samuel [place] [address] [place] [phone] 10/27/2022 11:19:33 10/27/2022 12:42:23 Upper respiratory infection 83254058 J06.9 Discussed results with patient. Likely viral infection and symptomati c treatment is indicated at this time.Use over the counter medication s for your sore throat. Basic lozenges (cough drops) or lozenges with an anesthetic (numbing agent) can be used as needed for quick results; look for the active ingredient , benzocaine , for numbing lozenges (like Cepacol Extra or Chlorasept ic Max). Gargling with warm salt water can also relieve pain. Dissolve 1/4 to 1/2 teaspoon in 8-ounces of warm water; gargle and spit salt solution every hour, as needed. Sore throat pain can also be reduced by taking regular doses of acetaminop hen (tylenol) or ibuprofen (Advil); While this isn't quick, it can significan tly reduce pain within an hour after taking. Please consult our office promptly if you develop any of the following symptoms: 1. consecutiv e days of fever over 101? ? ?F or 38.4? ? ?C2. Throat pain that is severe or does not start to improve within 5 to 7 days Call for an ambulance or go to the emergency room if you:1. Have trouble breathing2 . Cannot control your saliva (drooling) due to difficulty swallowing 3. Have swelling of the neck or tongue4. Cannot move your neck or have trouble opening your mouth Health Concerns Section Related Observation LastModified by Organization Detai ls LastModified Time None Recorded Concern Status LastModified by Organization Details LastModified Time None Recorded Advance Directives Directive None Recorded Payers Encounter Date Sequence Insurance Name Policy Number Policy Sheriff Covered Member ID Sheriff Member ID Guarantor Name 03/17/2020 1 [facility] (MEDICAID HMO) [id number] Amalia J Chan [id number] Amalia Chan 12/11/2020 1 [facility] (MEDICAID HMO) [id number] Amalia J Chan [id number] Amalia Chan 06/09/2021 1 [facility] (MEDICAID HMO) [id number] Amalia J Chan [id number] Amalia Chan 10/27/2022 1 [facility] [employer] (MEDICAID HMO) [id number] Amalia J Chan [id number] Amalia Chan Notes Date Note Type Note Provider Name and Address Organization Details Recorded Time 10/27/2022 text/html Sore throatRepor bel bypatient.Associated Symptoms:no shortness of breath; no wheezing; no sinus pain;sore throat;hoarseness;co ughingNotes:Patient was upset to learn that tests were negative, saying that I didnt care and was dismissive with her symptoms. I started listening to lungs but she stopped me and wouldnt allow me to finish exam. I reassured patient that she is sick, that it is not being dismissed. I explained how her immune system will fight this but that she should follow up with PCP or here if there are any worsening of symptoms. Need to note that she was very confrontational, raising voice in an aggressive manner. Joe Samuel MD [address] [place], [address], PA - [facility] 10/27/2022 19:21:30 OBGyn Episode No OBEpisode recorded.
== END 2025-02-19 13:37 | disposition home or self-care (01) ==
LOC: HO.HWS 13:04
PROVIDERS: Visit Provider Obstetrics & Gynecology
DX: N93.9 Abnormal uterine and vaginal bleeding, unspecified (principal)
CPT/HCPCS: 99213

== ENCOUNTER → 2025-02-19 13:04 | Outpatient (BNVA) | payer OTHER, SELFPAY | PROVIDERS: Visit Provider Obstetrics & Gynecology ==

== ENCOUNTER 2025-08-11 18:14 | Emergency (ER) | payer OTHER, SELFPAY ==
[2025-08-11 18:35] VITALS: BP 126/64; PULSE 61; RESP 18; TEMP 36.6; O2SAT 100; BMI 30.4
--- NOTE | 2025-08-11 18:35 | ED_ITS ---
HPI - Dental/Oral General Chief complaint: Dental/Oral Stated complaint: root canal/feels like infected/jaw pain Time Seen by Provider: 08/11/25 19:51 Source: patient Mode of arrival: ambulatory Limitations: no limitations History of Present Illness ED Provider: Jessica Bryant APRN HPI Narrative: 35 yo female with no known medical history here with left upper dental pain x 1 week, has had chronic dental issues. Had a filling months ago with her dentist. Sent to a specialist for a root canal but there was a miscommunication and she was not seen. Has not followed back up. Over the last week the pain is worse. She denies diff swallowing, diff breathing, fevers, chills. She also has a headache and sore throat and would like covid and flu testing. Related Data Home Medications ?Medication ?Instructions ?Recorded ?Confirmed methadone 95 mg PO DAILY 01/04/2512/16 Previous Rx's ?Medication ?Instructions ?Recorded ibuprofen 600 mg tablet 600 mg PO Q6H PRN pain #16 t abs 01/10/25 L norgest/E estradiol-E estrad 1 tab PO DAILY 84 days #84 ea 01/31/25 0.15 mg-30 mcg (84)/10 mcg(7) tabs,3mos amoxicillin 500 mg capsule 500 mg PO BID #20 caps 07/18 04/10 naproxen 500 mg tablet 500 mg PO BID PRN pain #30 t abs 08/11/25 Allergies Allergy/AdvReac Type Severity Reaction Status Date / Time No Known Allergies Allergy Verified 08/11/25 18:37 Review of Systems 2 Review of Systems: Yes all other systems are reviewed and are negative Constitutional: Constitutional: Reports no additional constitutional complaints, Denies body ache(s), Denies chills, Denies fever(s), Reports headache(s) and Denies weakness Eyes: Eyes: Reports no additional eye complaints and Denies change in vision ENT: Reports system reviewed and no additional complaints, except as documented, Reports dental pain, Denies dizziness, Reports headache(s), Denies nasal congestion, Denies nasal discharge, Denies neck pain and Reports sore throat Cardiovascular: Cardiovascular: Reports no additional cardiovascular complaints, Denies chest pain, Denies leg edema and Denies dyspnea Respiratory: Respiratory: Reports no additional respiratory complaints, Denies cough and Denies dyspnea Gastrointestinal: Gastrointestinal: Reports no additional gastrointestinal complaints, Denies abdominal pain, Denies diarrhea, Denies nausea and Denies vomiting Genitourinary: Genitourinary: Reports no additional female genitourinary complaints and Denies urinary incontinence Musculoskeletal: Musculoskeletal: Reports no additional musculoskeletal complaints, Denies back pain, Denies arthralgias, Denies joint swelling, Denies neck pain, Denies numbness and Denies tingling Integumentary/Breasts: Skin/Breast: Reports system reviewed and no additional complaints, except as docu and Denies rash Neurologic: Reports system reviewed and no additional complaints, except as documented, Denies Abnormal speech present, Denies dizziness, Reports headache(s), Denies numbness, Denies tingling and Denies weakness PMFSH Past Medical History Attestation statement: The following information was validated with the patient. Source: old records reviewed and nursing notes reviewed Medical History Abnormal uterine bleeding (AUB) Acute appendicitis Surgical History History of laparoscopic appendectomy (01/04/25) History of Social History Social History Household Members: Family and Children Housing: House Do you presently have visiting nurse or other home services: No Patient Tobacco Use Status: Never used Tobacco Second Hand Smoke Exposure: No Substance Use Type: Marijuana Advance Directives: No Advance Directives Information Provided: No service: No Physical Exam 2 Vital Signs: Vital Signs: Last Vital Signs Temp 97.8 F 08/11/25 18:35 Pulse 61 08/11/25 18:35 Resp 18 08/11/25 18:35 BP 126/64 08/11/25 18:35 Pulse Ox 100 08/11/25 18:35 O2 Del Method Room Air 08/11/25 18:35 BMI result Body Mass Index 30.4 Const: General: cooperative, healthy appearing, comfortable and no acute distress Orientation/consciousness: patient oriented x3 Limitations: no limitations HEENT: Head: Yes normal to inspection Ears: hearing grossly normal bilaterally and TM's normal bilaterally General nose exam: Normal external nose present Face and sinus: Yes normal facial exam Mouth: Normal oral and palatal mucosa present Teeth image: 1. dental caries, local erythema and swelling, no abscess Throat: Yes posterior oropharynx normal, Yes tonsils normal and Yes uvula midline Eyes: General: appearance normal, both eyes and all related structures P upils: Equal, round and reactive pupils present Neck: Neck: Yes normal visual inspection, Yes full ROM, Yes no lymphadenopathy and Yes no meningeal signs Chest: Chest palpation & inspection: normal inspection of the chest Resp: Effort & Inspection: normal respiratory effort Auscultation: clear to auscultation bilaterally Cardio: Rate: regular rate Rhythm: regular rhythm Peripheral pulses: P eripheral pulses 2+ throughout GI: Inspection: Yes normal to inspection Palpation (GI): Soft to palpation and nontender Auscultation: normal bowel sounds Back/Spine/Pelvis: Thoracic/Lumbar Spine: thoracic and lumbar spine normal to inspection Skin: General skin exam: no rashes or lesions noted Neuro: General: patient oriented x3, no meningeal signs, no focal motor deficits and normal sensation to monofilament Cranial nerves: Yes Equal, round and reactive pupils present Cognition (Neuro): normal cognition S peech: No Abnormal speech present Gait exam (Neuro): Normal gait present M otor exam (neuro): 5/5 motor strength present throughout Extrem: General: Yes normal to inspection Medical Decision Making Medical Decision Making [facility] Narrative: 35 yo female with no known medical history here with left upper dental pain x 1 week, has had chronic dental issues. Had a filling months ago with her dentist. Sent to a specialist for a root canal but there was a miscommunication and she was not seen. Has not followed back up. Over the last week the pain is worse. She denies diff swallowing, diff breathing, fevers, chills. She also has a headache and sore throat and would like covid and flu testing. Dental caries noted to left upper mouth with local erythema and swellling. No trismus. No abscess noted. Will treat with NSAID, antibiotic and recommend she follow-up Differential Diagnosis Differential Diagnoses: The differential diagnosis associated with the presentation includes Dental infection, tooth, low suspicion for dental abscess or Navid's angina Admission/Observation Consideration of admission/observation: Escalation of care including admission/observation considered Lab Data [facility] Lab Attestation statement: I reviewed the patient's lab results. Labs: Lab Results 08/11/25 Range/Units 18:55 COVID-19 (TYRESE) Negative (Negative) COVID-19 Clin Com See Note Influenza Type A (KIMMIE) Negative (Negative) Influenza Type B (KIMMIE) Negative (Negative) Influenza A & B Note See Note Independent Historian Clinical information obtained from an independent historian. History obtained from or confirmed by: Friend Prescription Management I considered prescription management with: Antibiotic Discharge Plan Discharge Clinical Impression: Pain, dental Patient Disposition: Home, Self-Care Instructions: Toothache (ED) Additional Instructions: Follow-up with your dentist Your flu and covid testing Soft foods Salt water gargles Avoid smoking Prescriptions: New amoxicillin 500 mg capsule 500 mg PO BID Qty: 20 0RF naproxen 500 mg tablet 500 mg PO BID PRN (Reason: pain) Qty: 30 0RF No Action methadone 95 mg PO DAILY ibuprofen 600 mg tablet 600 mg PO Q6H PRN (Reason: pain) Qty: 16 0RF L norgest/e.estradiol-e.estrad 0.15 mg-30 mcg (84)/10 mcg (7) tablets,dose pack,3 month 1 tab PO DAILY 84 Days Qty: 84 0RF Referrals: [facility] [Primary Care Provider, Medical] Stand Alone Forms: Work/School Release Discharge Date/Time: 08/11/25 20:11 Print Language: Bengali
[2025-08-11 19:16] LABS: COVID-19 Test Negative (Negative); IDNOW Serial# 55D5AD1C; IDNOW Serial# 58CA691E; Influenza B2 Negative (Negative)
== END 2025-08-11 20:11 | disposition home or self-care (01) ==
PROVIDERS: Nurse Practitioner Family; Emergency Provider Emergency Medicine
DX: K08.89 Other specified disorders of teeth and supporting structures (principal); R51.9 Headache, unspecified
CPT/HCPCS: 87502; 87635; 99281